=== PATIENT | female | born 1945 | race Caucasian/White ===

== ENCOUNTER → 2018-12-08 | Outpatient (CLI) | payer MEDICARE ==
[~2018-12-08] MED LIST: ASPI81EC PO; Aspirin EC81 MG PO; CALCIUM PYRUVATE PO; Calcitriol0.25 MCG PO; DIGO.25; FURO80; Feosol45 MG PO; LISI5 PO; Lisinopril2.5 MG PO; METO100ER PO; METO25ER PO; MOTOFEN 1-0.021 EACH PO; OMEP20ER; POTCHL10ER PO; PROCRIT 10000 UNIT; PROP50 PO; PROPYLTHIOURACIL; WARF3; Zofran4 MG PO; [UNRECOGNIZED DRUG - OTHER] PO
[2018-12-09 11:13] LABS: Adenovirus F 40/41 Not Detected (NOT DETECT); Astrovirus Not Detected (NOT DETECT); Campylobacter Sp Not Detected (NOT DETECT); Cryptosporidium Not Detected (NOT DETECT); Cyclospora Cayetanensis Not Detected (NOT DETECT); E. Coli O157 Not Detected (NOT DETECT); Entamoeba Histolytica Not Detected (NOT DETECT); Enteroaggregative E. coli-EAEC Not Detected (NOT DETECT); Enteropathogenic E. coli-EPEC Not Detected (NOT DETECT); Enterotoxigenic E. coli-ETEC Not Detected (NOT DETECT); Giardia Lamblia Not Detected (NOT DETECT); Norovirus GI/GII Not Detected (NOT DETECT); Plesiomonas Shigelloides Not Detected (NOT DETECT); Rotavirus A Not Detected (NOT DETECT); Salmonella Sp Not Detected (NOT DETECT); Sapovirus Not Detected (NOT DETECT); Shiga Toxin-prod E. coli-STEC Not Detected (NOT DETECT); Shigella/Enteroin E. coli-EIEC Not Detected (NOT DETECT); Vibrio Cholerae Not Detected (NOT DETECT); Vibrio Sp Not Detected (NOT DETECT); Yersinia Enterocolitica Not Detected (NOT DETECT)
== END | disposition home or self-care (01) ==
LOC: LAB 08:30 → LAB SHORT 08:30 → LAB FUT 12-03 11:25
PROVIDERS: Internal Medicine Gastroenterology
DX: R19.7 Diarrhea, unspecified (principal)
CPT/HCPCS: 87507

== ENCOUNTER 2019-02-26 11:46 | Day surgery (SDC) | payer MEDICARE ==
[~2019-02-26] VITALS: Ht 162.6 cm; Wt 48.3 kg
[2019-02-26] MEDS ORDERED: TIOT18 (12:30)
--- NOTE | 2019-02-26 12:35 | NUR ---
02/26/19 1235 Miesha Dumont 1 IV MISS IN RW BY YING VEIN BLEW 1 GOOD IV IN RAC BY YING PT TOW
--- NOTE | 2019-02-26 13:24 | NUR ---
02/26/19 1324 Bonnie Savage PT'S BP DOWN IN THE LOW 70'S TO LOW 80'S, AFTER UPPER ENDOSCOPY. MD JIEMY PULIDO, WAS ORDERED TO HOLD PROPOFOL INTO THE START OF THE COLONOSCOPY. PT CONT WITH HYPOTENSION, PT ALLOWED TO COMPLETELY WAKE UP AND WATCH THE COLONOSCOPY. PT DENIES PAIN OR DISCOMFORT, VERY INTERESTED IN WATCHING PROCEDURE.
== END 2019-02-26 14:05 | disposition home or self-care (01) ==
LOC: ORSCSDS 11:46
PROVIDERS: Internal Medicine Gastroenterology
PROC: 0DBL8ZX Excision of Transverse Colon, Via Natural or Artificial Opening Endoscopic, Diagnostic (ICD-10-PCS; principal; 2019-02-26 13:00)
PROC: 0DBE8ZX Excision of Large Intestine, Via Natural or Artificial Opening Endoscopic, Diagnostic (ICD-10-PCS; principal; 2019-02-26 13:00)
PROC: 0DB98ZX Excision of Duodenum, Via Natural or Artificial Opening Endoscopic, Diagnostic (ICD-10-PCS; principal; 2019-02-26 13:00)
DX: R11.0 Nausea (principal); R19.7 Diarrhea, unspecified; D12.3 Benign neoplasm of transverse colon; K63.89 Other specified diseases of intestine; D50.9 Iron deficiency anemia, unspecified; K57.30 Diverticulosis of large intestine without perforation or abscess without bleeding; K64.8 Other hemorrhoids; Z87.891 Personal history of nicotine dependence; I12.9 Hypertensive chronic kidney disease with stage 1 through stage 4 chronic kidney disease, or unspecified chronic kidney disease; N18.9 Chronic kidney disease, unspecified; J44.9 Chronic obstructive pulmonary disease, unspecified; E03.9 Hypothyroidism, unspecified; Z79.82 Long term (current) use of aspirin; Z79.899 Other long term (current) drug therapy
CPT/HCPCS: 88305; J2704; J7120

== ENCOUNTER → 2019-11-24 | Outpatient (CLI) | payer MEDICARE ==
[~2019-11-24] MED LIST changes: +TIOT18
[2019-11-24 18:37] LABS: Red Blood Cells, Urine TNTC /hpf (0-2); White Blood Cells, Urine TNTC /hpf (0-5)
[2019-11-24 18:38] LABS: Bacteria Many /hpf; Renal Epithelial Few /hpf (0-Rare); Squamous Epithelial Cells Few /hpf (Few); Transitional Epithelial Cells Few /hpf (0-Rare)
== END | disposition home or self-care (01) ==
LOC: LAB 15:39 → LAB SHORT 15:39
PROVIDERS: Internal Medicine Nephrology
DX: N39.0 Urinary tract infection, site not specified (principal)
CPT/HCPCS: 81015; 87077; 87086; 87186

== ENCOUNTER 2021-01-14 06:34 | Inpatient (IN) | payer MEDICARE, OTHER, SELFPAY ==
[~2021-01-14] VITALS: Ht 157.5 cm; Wt 46.7 kg
[~2021-01-14 06:34] MED LIST changes: -Aspirin EC81 MG PO; +CALCIUM PO; -CALCIUM PYRUVATE PO; -Calcitriol0.25 MCG PO; -Feosol45 MG PO; -Lisinopril2.5 MG PO; -METO25ER PO; -PROCRIT 10000 UNIT; -TIOT18; +[UNRECOGNIZED DRUG - CODE] SC
[2021-01-14 07:08] LABS: BASOPHILS ABSOLUTE AUTO 0.04 K/mm3 (0.00-0.23); BASOPHILS PERCENT AUTO 1 % (0-2); EOSINOPHILS ABSOLUTE AUTO 0.53 K/mm3 (0.00-0.68); EOSINOPHILS PERCENT AUTO 8 % (0-6); Hematocrit 40.6 % (33.0-51.0); IMMATURE GRAN ABSOLUTE AUTO 0.01 K/mm3 (0.00-0.10); IMMATURE GRAN PERCENT AUTO 0 % (0-1); LYMPHOCYTES ABSOLUTE AUTO 1.24 K/mm3 (0.84-5.20); LYMPHOCYTES PERCENT AUTO 19 % (21-46); MONOCYTES ABSOLUTE AUTO 0.44 K/mm3 (0.16-1.47); MONOCYTES PERCENT AUTO 7 % (4-13); Mean Corpuscular HGB 30.4 pg (26.0-34.0); Mean Corpuscular Volume 95 fL (80-100); Mean Platelet Volume 10.9 fL (9.1-12.4); NEUTROPHILS ABSOLUTE AUTO 4.24 K/mm3 (1.96-9.15); NEUTROPHILS PERCENT AUTO 65 % (41-73); Platelet Count 242 K/mm3 (150-400); RDW Coefficient Variation 14.3 % (11.7-14.2); RDW Standard Deviation 48.9 fL (35.1-46.3); Red Blood Cell Count 4.27 M/mm3 (3.80-5.20)
[2021-01-14 07:21] LABS: Albumin, Blood 3.8 g/dL (3.4-5.0); Bilirubin, Total 0.3 mg/dL (0.1-1.0); Bun/Creatinine Ratio 19.9 (12.0-20.0); Calcium, Blood 9.6 mg/dL (8.5-10.1); Creatinine, Blood 2.16 mg/dL (0.40-1.00); Globulin, Blood 3.8 g/dL (2.2-4.0); Potassium, Blood 4.5 mmol/L (3.5-5.5); Total Protein, Blood 7.6 g/dL (6.4-8.2)
[2021-01-14] MEDS ORDERED: CEPH500 PO (14:01)
--- NOTE | 2021-01-14 16:21 | NUR ---
Patient admitted by Dr Durham today. hypoxemic respiratory failure, kept because of blood pressure. If discharged over the weekend may require home oxygen. Patient has history of COPD. cp
--- NOTE | 2021-01-14 17:23 | NUR ---
SHIFT SUMMARY PATIENT ARRIVED TO THE FLOOR MID AFTERNOON. PATIENT ALERT, ORIENTED, AND COOPERATIVE WITH ADMISSION. PATIENT DENIES PAIN OR RESPIRATORY DISTRESS AFTER ARRIVAL TO THE FLOOR. PATIENT ON 2L O2 IN THE ROOM, NO HOME O2. PATIENT UP WITH ASSISTANCE WITH LINES AND IV POLE. PATIENT CURRENTLY RESTING IN BED.
[2021-01-14 21:38] LABS: International Normalized Ratio 0.96; Prothrombin Time Results 10.3 Sec (9.7-11.5)
--- NOTE | 2021-01-15 04:01 | NUR ---
SHIFT SUMMARY ADMITTED FOR ACUTE HYPOXEMIC RESPIRATORY FAILURE. FULL CODE. V/Q SCAN TO BE PERFORMED TODAY. FULL ANTICOAGULATION W/ HEPARIN DRIP IS INFUSING. D DIMER WAS 0.66. TWO IV'S FAILED FOR THIS PT THIS SHIFT. ONE IV REMAINS - INFUSING HEPARIN. CHARGE INFORMED, SHE MAY NEED A POWERGLIDE IV PLACED. SHE IS A&O X4. 1 ASSIST - BRP. TELEMETRY: NSR @ 67 BPM.
[2021-01-15 04:41] LABS: BASOPHILS ABSOLUTE AUTO 0.01 K/mm3 (0.00-0.23); BASOPHILS PERCENT AUTO 0 % (0-2); EOSINOPHILS ABSOLUTE AUTO 0.03 K/mm3 (0.00-0.68); EOSINOPHILS PERCENT AUTO 0 % (0-6); Hematocrit 33.2 % (33.0-51.0); Hemoglobin 10.4 g/dL (11.5-16.0); IMMATURE GRAN ABSOLUTE AUTO 0.03 K/mm3 (0.00-0.10); IMMATURE GRAN PERCENT AUTO 0 % (0-1); LYMPHOCYTES ABSOLUTE AUTO 0.94 K/mm3 (0.84-5.20); LYMPHOCYTES PERCENT AUTO 13 % (21-46); MONOCYTES ABSOLUTE AUTO 0.75 K/mm3 (0.16-1.47); MONOCYTES PERCENT AUTO 10 % (4-13); Mean Corpuscular HGB 29.9 pg (26.0-34.0); Mean Corpuscular HGB Conc 31.3 g/dL (31.5-36.5); Mean Corpuscular Volume 95 fL (80-100); Mean Platelet Volume 10.9 fL (9.1-12.4); NEUTROPHILS ABSOLUTE AUTO 5.58 K/mm3 (1.96-9.15); NEUTROPHILS PERCENT AUTO 76 % (41-73); Platelet Count 186 K/mm3 (150-400); RDW Coefficient Variation 14.2 % (11.7-14.2); RDW Standard Deviation 48.6 fL (35.1-46.3); Red Blood Cell Count 3.48 M/mm3 (3.80-5.20); White Blood Cell Count 7.34 K/mm3 (4.00-11.30)
[2021-01-15 05:03] LABS: Bun/Creatinine Ratio 23.9 (12.0-20.0); Calcium, Blood 8.5 mg/dL (8.5-10.1); Creatinine, Blood 1.97 mg/dL (0.40-1.00); Potassium, Blood 4.6 mmol/L (3.5-5.5)
[2021-01-15 16:43] LABS: Influenza A, PCR NEGATIVE (NEGATIVE); Influenza B, PCR NEGATIVE (NEGATIVE); Resp Syncytial Virus, PCR NEGATIVE (NEGATIVE); SARS-Cov-2 (COVID-19) PCR, MMC NEGATIVE (NEGATIVE)
--- NOTE | 2021-01-15 18:12 | NUR ---
SHIFT SUMMARY PT IS A&O, PLEASANT AND CO-OP. AWAKE AT START OF SHIFT. UP TO EOB FOR ALL MEALS. PT ON HEPARIN DRIP AT START OF SHIFT FOR ELEVATED D-DIMER. CRITICAL LABS CALLED X2. PHARMACY NOTIFIED AND ADJUSTED HEPARIN. VQ SCAN DONE AND DR POPE IN TO DISCUSS RESULTS. HEPARIN DRIP D/C'D. AND NEW ORDERS PLACED. PT WAS GOING TO GO HOME, BUT DEVELPED WHEEZING AND NPC. SOLUMEDROL STARTED FOR TODAY. POSSIBLE D/C TOMORROW. PT HAD BEEN 1P SBA TO BTHRM WITH LINES AND TUBING. TELE MX D/C'D AND IVF'S D/C'D. PT ALSO 98%ON 1L NC. PT NOW ON RA AND ABLE TO AMBULATE TO BTHRM ON HER OWN. PT NORMALLY ON RA AT BASELINE FOR HOME. PT DENIES FURTHER NEEDS. NO C/O. CALL LT IN REACH. ABLE TO MAKE NEEDS KNOWN.
--- NOTE | 2021-01-16 05:42 | NUR ---
SHIFT SUMMARY A/O, ABLE TO MAKE NEEDS KNOWN. COOPERATIVE WITH CARE. CALLS AND ANSWERS QUESTIONS APPROPRIATELY. NO C/O PAIN/DISCOMFORT. BP NOTED TO BE HYPOTENSIVE AT BEGINNING OF SHIFT; GIVEN 500ML BOLUS PER ON-CALL PROVIDER. MINIMAL RESULT. RE-CHECKED FOR AM VS MUCH IMPROVED. HOWEVER, DESATURATION NOTED AND PLACED BACK ON 2L VIA NC. NO OTHER ACUTE CHANGES NOTED OVERNIGHT. APPEARED TO REST WELL OVERNIGHT. 1P ASSIST TO BATHROOM. BED REMAINS IN LOWEST POSITION. CALL LIGHT AND BELONGINGS WITHIN REACH. REPORT TO ONCOMING RN.
--- NOTE | 2021-01-16 18:13 | NUR ---
SHIFT SUMMARY PT AWAKE, SITTING UP TO EOB, THIS AM. LUNGS T/O, SEEMED TO BE IMPROVED TODAY. HOWEVER, PT REPORTED TO DR POPE THAT SHE DIDN'T FEEL ALL THAT WELL. NO C/O OF SOB. PT PLACED ON 1L NC DURING THE NIGHT, AFTER GETTING UP TO BTHRM AND BACK; BIOX DOWN TO 88%. DR POPE IN TO SEE PT LATER IN AM, PLACING NEW ORDERS. PT TO STAY ONE MORE DAY. PO AND IV ABX ADDED PER CHART REVIEW. PT SEEMS TO BE DOING BETTER THIS AFTERNOON. PLEASANT AND CO-OP. EYES DROPS ORDERED PER HOME MEDICATIONS. PT UP TO EOB FOR MEALS. SBA TO INDEPENDENT TO BTHRM. CALL LT IN REACH.
--- NOTE | 2021-01-16 19:10 | NUR ---
ASSUMED CARE RECEIVED REPORT FROM VIANCA NOBLE. PT RESTING IN BED COMFORTABLY, IN NO ACUTE DISTRESS. NO ACUTE NEEDS ASSESSED AT THIS TIME. CALL LIGHT, POSSESSIONS IN REACH, BED IN LOW POSITION. CONTINUE TO MONITOR.
[2021-01-17 04:38] LABS: BASOPHILS ABSOLUTE AUTO 0.01 K/mm3 (0.00-0.23); BASOPHILS PERCENT AUTO 0 % (0-2); EOSINOPHILS PERCENT AUTO 0 % (0-6); Hematocrit 36.7 % (33.0-51.0); Hemoglobin 11.8 g/dL (11.5-16.0); IMMATURE GRAN ABSOLUTE AUTO 0.12 K/mm3 (0.00-0.10); IMMATURE GRAN PERCENT AUTO 1 % (0-1); LYMPHOCYTES PERCENT AUTO 6 % (21-46); MONOCYTES ABSOLUTE AUTO 0.38 K/mm3 (0.16-1.47); MONOCYTES PERCENT AUTO 3 % (4-13); Mean Corpuscular HGB 30.4 pg (26.0-34.0); Mean Corpuscular HGB Conc 32.2 g/dL (31.5-36.5); Mean Corpuscular Volume 95 fL (80-100); Mean Platelet Volume 10.9 fL (9.1-12.4); NEUTROPHILS PERCENT AUTO 90 % (41-73); Platelet Count 202 K/mm3 (150-400); RDW Coefficient Variation 14.1 % (11.7-14.2); RDW Standard Deviation 48.4 fL (35.1-46.3); Red Blood Cell Count 3.88 M/mm3 (3.80-5.20); White Blood Cell Count 12.21 K/mm3 (4.00-11.30)
[2021-01-17 05:01] LABS: Albumin, Blood 3.2 g/dL (3.4-5.0); Bilirubin, Total 0.1 mg/dL (0.1-1.0); Bun/Creatinine Ratio 29.4 (12.0-20.0); Calcium, Blood 8.9 mg/dL (8.5-10.1); Creatinine, Blood 1.77 mg/dL (0.40-1.00); Globulin, Blood 3.3 g/dL (2.2-4.0); Potassium, Blood 4.8 mmol/L (3.5-5.5); Total Protein, Blood 6.5 g/dL (6.4-8.2)
--- NOTE | 2021-01-17 05:25 | NUR ---
HUMIDIFIER ATTENDANT SUMMARY PT ASLEEP, IN NO ACUTE DISTRESS. SLEPT ON AND OFF T/O NIGHT. VS REVIEWED,WNL. O2 SATS STABLE ON RA. PT DENIES SOB. NO C/O GI UPSET AT THIS TIME. DENIES NEEDS. CALL LIGHT, POSSESSIONS IN REACH, BED IN LOW POSITION. CONTINUE TO MONITOR, REPORT OFF TO DAY RN.
--- NOTE | 2021-01-17 18:07 | NUR ---
SHIFT SUMMARY PT AOX4; CALLS APPROPRIATELY. PT DENIES CP OR PAIN. PT HAD A SHOWER TODAY; AND PT IS ON 1L OF O2; SATS ABOVE 90%. DYSPNEA ON EXERTION DUE TO COPD. PT DTR RECEIVED AN UPDATE FROM THIS NURSE TODAY. PT BED IS IN THE LOWEST POSITION AND CALL LIGHT WITHIN REACH
--- NOTE | 2021-01-17 19:02 | NUR ---
ADMIT: 01/14/21 DISCHARGE: DX: ARF CC: cpeabody ALIS CALL: RESIDENCE: home alone CAREGIVER: DX: copd, ckd 4, htn, see list DME: nebulizer CCM: no record HOME HEALTH: no record SUMMARY: Admit 01/14/[address] Durham 01/17/[address] Bhagat, no eta for discharge at this time. Patient will need home 02 evaluation for discharge home. I will meet with Aleisha on Sunday to start discharge planning. cp ASSESSMENT/RECOMMENDATIONS: 1. Acute hypoxemic respiratory failure, I suspect this primarily represents an exacerbation of chronic obstructive pulmonary disease symptoms
--- NOTE | 2021-01-17 22:32 | NUR ---
ASSUMPTION OF CARE. AOX3, INDEPENDENT IN THE ROOM. LUNGS TIGHT, DIMINISHED, BRONCHIAL RHONCI, COUGH PRODUCTIVE, THICK SPUTUM. CURRENTLY ON RA, DOES USE 1 LITER OFF AND ON, ENCOURAGED DEEP BREATHING. HR SINUS. NO PAIN. NO NEEDS NOTED. MEDICATION ADMINISTERED, REFUSED HEPARIN. CURRENTLY LAYING DOWN FOR BED. CALL LIGHT IS IN REACH.
--- NOTE | 2021-01-18 05:14 | NUR ---
SHIFT SUMMARY: AOX3, PLEASANT AND COOPERATIVE. LUNGS TIGHT, DYSPENIC WITH EXERTION. SATS LOW 90'S ON RA, OCCATIONALLY USES 1 LITER FOR RELEIF. COUGH OCCATIONAL PRODUCTIVE. INDEPENDENT IN THE ROOM. VS WNL, AFEBRILE. DOES NOT LIKE STERIODS THEY MAKE HER STAY AWAKE AND SHAKY. HOPES TO GO HOME SOON. NO OTHER ACUTE CHANGES TO NOTE THIS SHIFT. CALL LIGHT IS IN REACH.
[2021-01-18 05:19] LABS: BASOPHILS ABSOLUTE AUTO 0.01 K/mm3 (0.00-0.23); BASOPHILS PERCENT AUTO 0 % (0-2); EOSINOPHILS PERCENT AUTO 0 % (0-6); Hematocrit 40.5 % (33.0-51.0); Hemoglobin 12.7 g/dL (11.5-16.0); IMMATURE GRAN ABSOLUTE AUTO 0.15 K/mm3 (0.00-0.10); IMMATURE GRAN PERCENT AUTO 1 % (0-1); LYMPHOCYTES ABSOLUTE AUTO 0.56 K/mm3 (0.84-5.20); LYMPHOCYTES PERCENT AUTO 5 % (21-46); MONOCYTES ABSOLUTE AUTO 0.26 K/mm3 (0.16-1.47); MONOCYTES PERCENT AUTO 2 % (4-13); Mean Corpuscular HGB 29.9 pg (26.0-34.0); Mean Corpuscular HGB Conc 31.4 g/dL (31.5-36.5); Mean Corpuscular Volume 95 fL (80-100); Mean Platelet Volume 10.9 fL (9.1-12.4); NEUTROPHILS ABSOLUTE AUTO 10.38 K/mm3 (1.96-9.15); NEUTROPHILS PERCENT AUTO 91 % (41-73); Platelet Count 226 K/mm3 (150-400); RDW Coefficient Variation 14.1 % (11.7-14.2); RDW Standard Deviation 48.9 fL (35.1-46.3); Red Blood Cell Count 4.25 M/mm3 (3.80-5.20); White Blood Cell Count 11.36 K/mm3 (4.00-11.30)
[2021-01-18 05:34] LABS: Calcium, Blood 9.1 mg/dL (8.5-10.1); Creatinine, Blood 1.86 mg/dL (0.40-1.00); Potassium, Blood 4.7 mmol/L (3.5-5.5)
[2021-01-18] MEDS ORDERED: AZIT250 PO (16:12)
[2021-01-18] MEDS ORDERED: PRED20 PO (16:15)
--- NOTE | 2021-01-18 16:58 | NUR ---
ADMIT: 01/14/21 DISCHARGE: 01/18/21 DX: ARF CC: cpeabody ALIS CALL: Call Aleisha at home for alis, 1 week follow up alis in [place]. Prefers Dr Durham or Olayinka. RESIDENCE: home alone CAREGIVER: friends can help out if needed. DX: copd, ckd 4, htn, see list DME: nebulizer, Oxygen 2 l/m 24 hours from [facility] 01/18/21 CCM: no record HOME HEALTH: not homebound SUMMARY: Admit 01/14/[address] Durham 01/18/21 Discharge home, friend to pick her up, can take her to pharmacy and grocery store. Reviewed discharge checklist. Did not identify any additional care needs. Would like to see Dr Durham or Olayinka for alis follow up if possbile. 1 week. Reviewed alis letter, left her a copy. [facility] to deliver oxygen portable for discharge. cp 01/17/[address] Bhagat, no eta for discharge at this time. Patient will need home 02 evaluation for discharge home. I will meet with Aleisha on Sunday to start discharge planning. cp ASSESSMENT/RECOMMENDATIONS: 1. Acute hypoxemic respiratory failure, I suspect this primarily represents an exacerbation of chronic obstructive pulmonary disease symptoms.
--- NOTE | 2021-01-18 17:17 | NUR ---
DISCHARGED TO HOME WITH HER FRIEND AT 1639. SHE HAD HER BELONGINGS, HER NEW PORTABLE O2 TANK AND HER INSTRUCTIONS. SHE IS NOT HAPPY ABOUT NEEDING O2 AT HOME. SHE IS ALSO AFRAID SHE CAN'T AFORD IT. SHE ALWAYS LOOK SOB, MORESO WITH ACTIVITY IN THE ROOM. SHE WAS VERY HAPPY TO GO HOME.
== END 2021-01-18 16:39 | disposition home or self-care (01) | DRG 189 ==
LOC: ER 06:34 → MEDS 12:10
PROVIDERS: Emergency Medicine; Family Medicine; Pharmacist; ADMIT Internal Medicine
DX: J96.01 Acute respiratory failure with hypoxia (principal); I13.0 Hypertensive heart and chronic kidney disease with heart failure and stage 1 through stage 4 chronic kidney disease, or unspecified chronic kidney disease; N18.4 Chronic kidney disease, stage 4 (severe); J43.9 Emphysema, unspecified; Z20.822 Contact with and (suspected) exposure to COVID-19; I50.9 Heart failure, unspecified; I95.9 Hypotension, unspecified; K21.9 Gastro-esophageal reflux disease without esophagitis; K22.4 Dyskinesia of esophagus; M81.0 Age-related osteoporosis without current pathological fracture; Z99.81 Dependence on supplemental oxygen; I48.91 Unspecified atrial fibrillation; E05.00 Thyrotoxicosis with diffuse goiter without thyrotoxic crisis or storm; Z87.891 Personal history of nicotine dependence; D64.9 Anemia, unspecified; E05.80 Other thyrotoxicosis without thyrotoxic crisis or storm
CPT/HCPCS: 0241U; 36415; 71045; 71046; 78580; 80048; 80053; 83880; 84145; 85025; 85379; 85610; 85730; 93005; 93010; 94640; 94644; 94760; 94761; 96374; 99285-25; A9270; A9540; J0696; J1644; J2930; J7040; J7042; J7050

== ENCOUNTER → 2021-01-27 | Outpatient (CLI) | payer MEDICARE, OTHER ==
[~2021-01-27] MED LIST changes: +ALBU90OI INH; +AZIT250 PO; +Aspirin EC81 MG PO; +BUDESONIDE-FO10.2 G2 INH; +CEPH500 PO; +Calcitriol0.25 MCG PO; +FUROSEMIDE40 MG PO; +Feosol45 MG PO; +IPRAT-ALBUT 0.5-3 ML NEB; +LATA.005SO BOTHEYES; +METO25 PO; +Methimazole5 MG PO; +POTA8 PO; +PRED20 PO; +TIOT18 INH; +VITAMIN D325 MC3 PO
[2021-01-28 09:57] LABS: C DIFFICILE DNA POSITIVE (Negative)
== END | disposition home or self-care (01) ==
LOC: LAB SHORT 14:59 → LAB 14:59
PROVIDERS: Internal Medicine
DX: R19.7 Diarrhea, unspecified (principal)
CPT/HCPCS: 87324; 87493

== ENCOUNTER 2021-03-15 17:01 | Emergency (ER) | payer MEDICARE, OTHER ==
[~2021-03-15] VITALS: Ht 157.5 cm; Wt 47.6 kg
[~2021-03-15 17:01] MED LIST changes: -ALBU90OI INH; -Aspirin EC81 MG PO; -BUDESONIDE-FO10.2 G2 INH; -Calcitriol0.25 MCG PO; -FUROSEMIDE40 MG PO; -Feosol45 MG PO; -IPRAT-ALBUT 0.5-3 ML NEB; -LATA.005SO BOTHEYES; -METO25 PO; -Methimazole5 MG PO; -POTA8 PO; -TIOT18 INH; -VITAMIN D325 MC3 PO
[2021-03-15 18:08] LABS: BASOPHILS ABSOLUTE AUTO 0.06 K/mm3 (0.00-0.23); BASOPHILS PERCENT AUTO 1 % (0-2); EOSINOPHILS ABSOLUTE AUTO 0.24 K/mm3 (0.00-0.68); EOSINOPHILS PERCENT AUTO 3 % (0-6); Hematocrit 34.7 % (33.0-51.0); Hemoglobin 11.2 g/dL (11.5-16.0); IMMATURE GRAN ABSOLUTE AUTO 0.44 K/mm3 (0.00-0.10); IMMATURE GRAN PERCENT AUTO 6 % (0-1); LYMPHOCYTES ABSOLUTE AUTO 1.27 K/mm3 (0.84-5.20); LYMPHOCYTES PERCENT AUTO 17 % (21-46); MONOCYTES ABSOLUTE AUTO 0.66 K/mm3 (0.16-1.47); MONOCYTES PERCENT AUTO 9 % (4-13); Mean Corpuscular HGB 30.8 pg (26.0-34.0); Mean Corpuscular HGB Conc 32.3 g/dL (31.5-36.5); Mean Corpuscular Volume 95 fL (80-100); Mean Platelet Volume 10.3 fL (9.1-12.4); NEUTROPHILS ABSOLUTE AUTO 4.78 K/mm3 (1.96-9.15); NEUTROPHILS PERCENT AUTO 64 % (41-73); NRBC ABSOLUTE 0.11 K/mm3 (0.00-0.02); NRBC Auto 1.5 /100 WBC (0.0-0.2); Platelet Count 330 K/mm3 (150-400); RDW Coefficient Variation 16.7 % (11.7-14.2); RDW Standard Deviation 56.2 fL (35.1-46.3); Red Blood Cell Count 3.64 M/mm3 (3.80-5.20); White Blood Cell Count 7.45 K/mm3 (4.00-11.30)
[2021-03-15 18:25] LABS: Albumin, Blood 3.8 g/dL (3.4-5.0); Bilirubin, Total 0.4 mg/dL (0.1-1.0); Bun/Creatinine Ratio 24.1 (12.0-20.0); Calcium, Blood 9.2 mg/dL (8.5-10.1); Creatinine, Blood 2.74 mg/dL (0.40-1.00); Potassium, Blood 5.3 mmol/L (3.5-5.5); Total Protein, Blood 7.8 g/dL (6.4-8.2)
[2021-03-15 18:35] LABS: BAND PERCENT MAN 5 % (0-8); BASOPHILS PERCENT MAN 0 % (0-2); EOSINOPHILS ABSOLUTE MAN 0.29 K/mm3 (0.00-0.68); EOSINOPHILS PERCENT MAN 4 % (0-6); LYMPHOCYTES % ATYPICAL MANUAL 1 % (0-0); LYMPHOCYTES ABSOLUTE MAN 1.49 K/mm3 (0.84-5.20); LYMPHOCYTES PERCENT MAN 19 % (21-46); METAMYELOCYTE ABSOLUTE MAN 0.37 K/mm3 (0.00-0.00); METAMYELOCYTE PERCENT MAN 5 % (0-0); MONOCYTES ABSOLUTE MAN 0.14 K/mm3 (0.16-1.47); MONOCYTES PERCENT MAN 2 % (4-13); NEUTROPHILS ABSOLUTE MAN 5.14 K/mm3 (1.96-9.15); SEG NEUTROPHILS PERCENT MAN 64 % (41-73); TOTAL CELLS COUNTED 100
[2021-03-15] MEDS ORDERED: BUDESONIDE-FO10.2 G2 INH (19:43)
[2021-03-15] MEDS ORDERED: FUROSEMIDE40 MG PO (19:44)
[2021-03-15] MEDS ORDERED: POTA8 PO (19:45)
[2021-03-15] MEDS ORDERED: Calcitriol0.25 MCG PO (19:45)
[2021-03-15] MEDS ORDERED: ALBU90OI INH (19:46)
[2021-03-15] MEDS ORDERED: Methimazole5 MG PO (20:18)
[2021-03-15] MEDS ORDERED: LATA.005SO BOTHEYES (20:18)
[2021-03-15] MEDS ORDERED: Feosol45 MG PO (20:18)
[2021-03-15] MEDS ORDERED: Aspirin EC81 MG PO (20:18)
[2021-03-15] MEDS ORDERED: LISI5 PO (20:18)
[2021-03-15] MEDS ORDERED: TIOT18 INH (20:18)
[2021-03-15] MEDS ORDERED: METO25 PO (20:18)
[2021-03-15] MEDS ORDERED: IPRAT-ALBUT 0.5-3 ML NEB (20:19)
[2021-03-15] MEDS ORDERED: VITAMIN D325 MC3 PO (20:19)
== END 2021-03-16 01:21 | disposition home or self-care (01) ==
LOC: ER 17:01
PROVIDERS: Physician Assistant
DX: R19.7 Diarrhea, unspecified (principal); I48.91 Unspecified atrial fibrillation; I13.0 Hypertensive heart and chronic kidney disease with heart failure and stage 1 through stage 4 chronic kidney disease, or unspecified chronic kidney disease; I50.9 Heart failure, unspecified; N18.9 Chronic kidney disease, unspecified; E03.9 Hypothyroidism, unspecified; Z79.899 Other long term (current) drug therapy; Z88.1 Allergy status to other antibiotic agents; Z88.5 Allergy status to narcotic agent
CPT/HCPCS: 36415; 80053; 84439; 84443; 85025; 99284; J7030

== ENCOUNTER → 2021-03-17 | Outpatient (CLI) | payer MEDICARE, OTHER ==
[~2021-03-17] MED LIST changes: +ALBU90OI INH; +Aspirin EC81 MG PO; +BUDESONIDE-FO10.2 G2 INH; +Calcitriol0.25 MCG PO; +FUROSEMIDE40 MG PO; +Feosol45 MG PO; +IPRAT-ALBUT 0.5-3 ML NEB; +LATA.005SO BOTHEYES; +METO25 PO; +Methimazole5 MG PO; +POTA8 PO; +TIOT18 INH; +VITAMIN D325 MC3 PO
[2021-03-18 10:14] LABS: C DIFFICILE DNA POSITIVE (Negative)
== END ==
LOC: LAB SHORT 10:00 → LAB 10:00
PROVIDERS: Internal Medicine
DX: A04.72 Enterocolitis due to Clostridium difficile, not specified as recurrent (principal)
CPT/HCPCS: 87324; 87493

== ENCOUNTER → 2021-05-25 | Outpatient (CLI) | payer MEDICARE, OTHER ==
[2021-05-25 17:18] LABS: Campylobacter Sp Not Detected (NOT DETECT); Plesiomonas Shigelloides Not Detected (NOT DETECT); Salmonella Sp Not Detected (NOT DETECT)
[2021-05-25 17:19] LABS: Adenovirus F 40/41 Not Detected (NOT DETECT); Astrovirus Not Detected (NOT DETECT); Cryptosporidium Not Detected (NOT DETECT); Cyclospora Cayetanensis Not Detected (NOT DETECT); E. Coli O157 Not Detected (NOT DETECT); Entamoeba Histolytica Not Detected (NOT DETECT); Enteroaggregative E. coli-EAEC Not Detected (NOT DETECT); Enteropathogenic E. coli-EPEC Not Detected (NOT DETECT); Enterotoxigenic E. coli-ETEC Not Detected (NOT DETECT); Giardia Lamblia Not Detected (NOT DETECT); Norovirus GI/GII Not Detected (NOT DETECT); Rotavirus A Not Detected (NOT DETECT); Sapovirus Not Detected (NOT DETECT); Shiga Toxin-prod E. coli-STEC Not Detected (NOT DETECT); Shigella/Enteroin E. coli-EIEC Not Detected (NOT DETECT); Vibrio Cholerae Not Detected (NOT DETECT); Vibrio Sp Not Detected (NOT DETECT); Yersinia Enterocolitica Not Detected (NOT DETECT)
== END | disposition home or self-care (01) ==
LOC: LAB 07:22 → LAB SHORT 07:22
PROVIDERS: Internal Medicine Gastroenterology
DX: R19.7 Diarrhea, unspecified (principal)
CPT/HCPCS: 0097U; 87324

== ENCOUNTER → 2022-06-19 | Outpatient (CLI) | payer MEDICARE, OTHER ==
[~2022-06-19] MED LIST changes: +SULTRIDS PO
[2022-06-20 10:59] LABS: Stool Occult Bld Immuno 1 Negative (NEGATIVE)
== END | disposition home or self-care (01) ==
LOC: LAB 08:45 → LAB SHORT 08:45
PROVIDERS: Internal Medicine Nephrology
DX: B82.9 Intestinal parasitism, unspecified (principal)
CPT/HCPCS: 82274

== ENCOUNTER → 2022-06-22 | Outpatient (CLI) | payer MEDICARE, OTHER ==
[~2022-06-22] MED LIST changes: +ACET500 PO; +BRIMONIDINE TART5 ML BOTHEYES; +CLOT10 MT; +COLCRYS0.6 M1 PO; +ENOX30I SC; +FURO80 PO; +GABA100 PO; +LIDO5TO TOP; +LOPE2C PO; +METHI10 PO; +MIDO5 PO; +ONDA4 PO; +ONDA4ODT MM; +POTA10T PO; +SODBIC650 PO
[2022-06-23 07:51] LABS: C DIFFICILE DNA POSITIVE (Negative)
== END | disposition home or self-care (01) ==
LOC: LAB 14:00 → LAB SHORT 14:00 → LAB FUT 06-22 11:40
PROVIDERS: Internal Medicine Nephrology
DX: A04.71 Enterocolitis due to Clostridium difficile, recurrent (principal)
CPT/HCPCS: 87324; 87493

== ENCOUNTER 2022-07-01 10:26 | Emergency (ER) | payer MEDICARE, OTHER ==
[~2022-07-01] VITALS: Ht 157.5 cm; Wt 45.4 kg
[~2022-07-01 10:26] MED LIST changes: -ACET500 PO; -BRIMONIDINE TART5 ML BOTHEYES; -CLOT10 MT; -COLCRYS0.6 M1 PO; -ENOX30I SC; -FURO80 PO; -GABA100 PO; -LIDO5TO TOP; -LOPE2C PO; -METHI10 PO; -MIDO5 PO; -ONDA4 PO; -ONDA4ODT MM; -POTA10T PO; -SODBIC650 PO; -SULTRIDS PO
[2022-07-01 11:41] LABS: BASOPHILS ABSOLUTE AUTO 0.03 K/mm3 (0.00-0.23); BASOPHILS PERCENT AUTO 0 % (0-2); EOSINOPHILS ABSOLUTE AUTO 0.13 K/mm3 (0.00-0.68); EOSINOPHILS PERCENT AUTO 2 % (0-6); Hematocrit 35.1 % (33.0-51.0); IMMATURE GRAN ABSOLUTE AUTO 0.03 K/mm3 (0.00-0.10); IMMATURE GRAN PERCENT AUTO 0 % (0-1); LYMPHOCYTES ABSOLUTE AUTO 1.13 K/mm3 (0.84-5.20); LYMPHOCYTES PERCENT AUTO 16 % (21-46); MONOCYTES ABSOLUTE AUTO 0.56 K/mm3 (0.16-1.47); MONOCYTES PERCENT AUTO 8 % (4-13); Mean Corpuscular HGB 30.1 pg (26.0-34.0); Mean Corpuscular HGB Conc 31.3 g/dL (31.5-36.5); Mean Corpuscular Volume 96 fL (80-100); Mean Platelet Volume 9.6 fL (9.1-12.4); NEUTROPHILS ABSOLUTE AUTO 5.19 K/mm3 (1.96-9.15); NEUTROPHILS PERCENT AUTO 74 % (41-73); Platelet Count 210 K/mm3 (150-400); RDW Coefficient Variation 17.2 % (11.7-14.2); RDW Standard Deviation 56.7 fL (35.1-46.3); Red Blood Cell Count 3.66 M/mm3 (3.80-5.20); White Blood Cell Count 7.07 K/mm3 (4.00-11.30)
[2022-07-01 11:54] LABS: Bun/Creatinine Ratio 25.9 (12.0-20.0); Calcium, Blood 9.5 mg/dL (8.5-10.1); Creatinine, Blood 1.85 mg/dL (0.40-1.00); Potassium, Blood 5.4 mmol/L (3.5-5.5)
[2022-07-01 12:50] LABS: Source, Urine Clean Catch
[2022-07-01 12:55] LABS: Appearance, Urine Hazy (Clear); Bilirubin, Urine Neg (Neg); Blood, Urine 5+ (Neg); Glucose Qualitative, Urine Neg (Neg); Ketones, Urine Neg (Neg); Leukocyte Esterase, Urine 2+ (Neg); Nitrite, Urine Pos (Neg); Protein, Urine 2+ (Neg); Urobilinogen, Urine NORM (Normal)
[2022-07-01 13:00] LABS: Color, Urine Pale Yellow (P-Yellow)
[2022-07-01 13:01] LABS: Bacteria Many /hpf; Hyaline Casts 0-2 /lpf (0-2); Red Blood Cells, Urine 50-100 /hpf (0-2); Squamous Epithelial Cells Rare /hpf (Few); White Blood Cells, Urine 25-50 /hpf (0-5)
[2022-07-01] MEDS ORDERED: SULTRIDS PO (13:32)
== END 2022-07-01 13:58 | disposition home or self-care (01) ==
LOC: ER 10:26
PROVIDERS: Emergency Medicine
DX: N39.0 Urinary tract infection, site not specified (principal); I48.91 Unspecified atrial fibrillation; I13.0 Hypertensive heart and chronic kidney disease with heart failure and stage 1 through stage 4 chronic kidney disease, or unspecified chronic kidney disease; N18.9 Chronic kidney disease, unspecified; I50.9 Heart failure, unspecified; E03.9 Hypothyroidism, unspecified; Z79.899 Other long term (current) drug therapy; Z79.82 Long term (current) use of aspirin
CPT/HCPCS: 36415; 80048; 81001; 85025; A9270; J7030

== ENCOUNTER 2022-07-02 10:21 | Emergency (ER) | payer MEDICARE, OTHER ==
[~2022-07-02] VITALS: Ht 157.5 cm; Wt 47.6 kg
[~2022-07-02 10:21] MED LIST changes: +SULTRIDS PO
[2022-07-02 11:04] LABS: BASOPHILS ABSOLUTE AUTO 0.05 K/mm3 (0.00-0.23); BASOPHILS PERCENT AUTO 1 % (0-2); EOSINOPHILS ABSOLUTE AUTO 0.14 K/mm3 (0.00-0.68); EOSINOPHILS PERCENT AUTO 2 % (0-6); Hematocrit 33.5 % (33.0-51.0); Hemoglobin 10.6 g/dL (11.5-16.0); IMMATURE GRAN ABSOLUTE AUTO 0.06 K/mm3 (0.00-0.10); IMMATURE GRAN PERCENT AUTO 1 % (0-1); LYMPHOCYTES ABSOLUTE AUTO 1.25 K/mm3 (0.84-5.20); LYMPHOCYTES PERCENT AUTO 17 % (21-46); MONOCYTES PERCENT AUTO 7 % (4-13); Mean Corpuscular HGB 30.4 pg (26.0-34.0); Mean Corpuscular HGB Conc 31.6 g/dL (31.5-36.5); Mean Corpuscular Volume 96 fL (80-100); NEUTROPHILS ABSOLUTE AUTO 5.45 K/mm3 (1.96-9.15); NEUTROPHILS PERCENT AUTO 73 % (41-73); Platelet Count 209 K/mm3 (150-400); RDW Standard Deviation 57.8 fL (35.1-46.3); Red Blood Cell Count 3.49 M/mm3 (3.80-5.20); White Blood Cell Count 7.45 K/mm3 (4.00-11.30)
[2022-07-02 11:15] LABS: Albumin, Blood 3.5 g/dL (3.4-5.0); Bilirubin, Total 0.3 mg/dL (0.1-1.0); Bun/Creatinine Ratio 18.5 (12.0-20.0); Calcium, Blood 9.1 mg/dL (8.5-10.1); Creatinine, Blood 1.89 mg/dL (0.40-1.00); Globulin, Blood 3.5 g/dL (2.2-4.0); Potassium, Blood 4.8 mmol/L (3.5-5.5)
[2022-07-02 12:57] LABS: Influenza A, PCR NEGATIVE (NEGATIVE); Influenza B, PCR NEGATIVE (NEGATIVE); Resp Syncytial Virus, PCR NEGATIVE (NEGATIVE); SARS-Cov-2 (COVID-19) PCR, MMC NEGATIVE (NEGATIVE)
== END 2022-07-02 16:00 | disposition home or self-care (01) ==
LOC: ER 10:21
PROVIDERS: Emergency Medicine; Family Medicine
DX: E86.0 Dehydration (principal); I10 Essential (primary) hypertension; J44.9 Chronic obstructive pulmonary disease, unspecified; Z87.891 Personal history of nicotine dependence; Z20.822 Contact with and (suspected) exposure to COVID-19; Z79.82 Long term (current) use of aspirin; Z79.899 Other long term (current) drug therapy
CPT/HCPCS: 0241U; 71046; 80053; 83605; 85025; 93005; 93010; 99284-25

== ENCOUNTER 2022-07-20 17:43 | Observation (INO) | payer MEDICARE, OTHER ==
[~2022-07-20] VITALS: Ht 157.5 cm; Wt 44.2 kg
[2022-07-20 18:36] LABS: BASOPHILS ABSOLUTE AUTO 0.05 K/mm3 (0.00-0.23); BASOPHILS PERCENT AUTO 1 % (0-2); EOSINOPHILS PERCENT AUTO 1 % (0-6); Hematocrit 33.8 % (33.0-51.0); Hemoglobin 10.4 g/dL (11.5-16.0); IMMATURE GRAN ABSOLUTE AUTO 0.03 K/mm3 (0.00-0.10); IMMATURE GRAN PERCENT AUTO 0 % (0-1); LYMPHOCYTES ABSOLUTE AUTO 0.91 K/mm3 (0.84-5.20); LYMPHOCYTES PERCENT AUTO 12 % (21-46); MONOCYTES ABSOLUTE AUTO 0.52 K/mm3 (0.16-1.47); MONOCYTES PERCENT AUTO 7 % (4-13); Mean Corpuscular HGB Conc 30.8 g/dL (31.5-36.5); Mean Corpuscular Volume 101 fL (80-100); Mean Platelet Volume 10.2 fL (9.1-12.4); NEUTROPHILS ABSOLUTE AUTO 5.81 K/mm3 (1.96-9.15); NEUTROPHILS PERCENT AUTO 78 % (41-73); Platelet Count 223 K/mm3 (150-400); RDW Standard Deviation 60.1 fL (35.1-46.3); Red Blood Cell Count 3.36 M/mm3 (3.80-5.20); White Blood Cell Count 7.42 K/mm3 (4.00-11.30)
[2022-07-20 18:56] LABS: Albumin, Blood 3.6 g/dL (3.4-5.0); Albumin/Globulin Ratio 1.1 (0.8-1.8); Bilirubin, Total 0.4 mg/dL (0.1-1.0); Bun/Creatinine Ratio 26.2 (12.0-20.0); Calcium, Blood 9.1 mg/dL (8.5-10.1); Creatinine, Blood 1.87 mg/dL (0.40-1.00); Globulin, Blood 3.3 g/dL (2.2-4.0); Magnesium, Blood 2.1 mg/dL (1.6-2.4); Potassium, Blood 5.2 mmol/L (3.5-5.5); Total Protein, Blood 6.9 g/dL (6.4-8.2)
[2022-07-20] MEDS ORDERED: ACET500 PO (19:53)
[2022-07-20] MEDS ORDERED: COLCRYS0.6 M1 PO (19:53)
--- NOTE | 2022-07-20 22:04 | NUR ---
ADMISSION PT ARRIVED TO THE UNIT AT 2140 FOR L HIP INJURY. PT FELL OVER HER NC CORD AT HOME AND INJURED HER HIP AND SUSTAINED ABRAIONS TO HER L KNEE AND FOREARM. PT HAS A HX OF CDIFF FROM 06/04, SHE RECIEVED A 10 DAY TREATMENT BUT STILL REPORTS LOOSE STOOLS. PT PLACED ON CONTACT PRECAUTIONS FOR CDIFF. PT AOX4, PLEASANT AND COOPERATIVE. SHE IS ON 2L O2 NC AT BASELINE. SHE DOES NOT HAVE PAIN UNLESS SHE IS TRYING TO AMBULATE OR REPOSITION. PT LIVES ALONE, MAY NEED REHAB OR HOME HEALTH.
[2022-07-20] MEDS ORDERED: BRIMONIDINE TART5 ML BOTHEYES (22:06)
[2022-07-21 04:35] LABS: BASOPHILS ABSOLUTE AUTO 0.03 K/mm3 (0.00-0.23); BASOPHILS PERCENT AUTO 0 % (0-2); EOSINOPHILS PERCENT AUTO 0 % (0-6); Hematocrit 29.5 % (33.0-51.0); Hemoglobin 9.1 g/dL (11.5-16.0); IMMATURE GRAN ABSOLUTE AUTO 0.07 K/mm3 (0.00-0.10); IMMATURE GRAN PERCENT AUTO 1 % (0-1); LYMPHOCYTES ABSOLUTE AUTO 0.35 K/mm3 (0.84-5.20); LYMPHOCYTES PERCENT AUTO 4 % (21-46); MONOCYTES ABSOLUTE AUTO 0.49 K/mm3 (0.16-1.47); MONOCYTES PERCENT AUTO 5 % (4-13); Mean Corpuscular HGB 31.2 pg (26.0-34.0); Mean Corpuscular HGB Conc 30.8 g/dL (31.5-36.5); Mean Corpuscular Volume 101 fL (80-100); Mean Platelet Volume 10.1 fL (9.1-12.4); NEUTROPHILS ABSOLUTE AUTO 8.98 K/mm3 (1.96-9.15); NEUTROPHILS PERCENT AUTO 91 % (41-73); Platelet Count 195 K/mm3 (150-400); RDW Coefficient Variation 15.6 % (11.7-14.2); RDW Standard Deviation 58.4 fL (35.1-46.3); Red Blood Cell Count 2.92 M/mm3 (3.80-5.20); White Blood Cell Count 9.92 K/mm3 (4.00-11.30)
--- NOTE | 2022-07-21 04:43 | NUR ---
SHIFT SUMMARY PT ARRIVED FROM THE ER AT 2140 WITH A L HIP FRACTURE AND BRUISING AND ABRAISIONS ON HER LEFT ARM AND KNEE. SHE LIVES ALONE AND TRIPPED ON HER NC TUBING AND FELL. SHE IS ON 2L O2 AT BASELINE. PETROLIUM DRESSINGS WERE PLACED ON HER WOUNDS AND THEY WERE WRAPPED WITH NON ADHESIVE DRESSING. PT IS UNABLE TO AMBULATE DUE TO PAIN, SHE WAS GIVEN A FEMALE URINAL AND INSTRUCTED TO CALL IF SHE NEEDS TO HAVE A BM. SHE HAS A HX OF CDIFF AND REPORTS HAVING LOOSE STOOLS THE LAST FEW WEEKS, SHE IS PLACED ON ISOLATION PRECAUTIONS. SHE IS EXPERIENCING NAUSEA AND DRY HEAVING AND WAS GIVEN PRN ZOFRAN WHICH PT STATES ONLY HELPED FOR 30 MINUTES. PT STATES A MORAL OBJECTION TO TAKING MORPHINE, HER PAIN IS WELL CONTROLLED WHILE AT REST. SHE HAS AN ACTIVE ORDER FOR PALLIATIVE CARE CONSULT.
[2022-07-21 05:02] LABS: Albumin, Blood 3.2 g/dL (3.4-5.0); Bilirubin, Total 0.7 mg/dL (0.1-1.0); Bun/Creatinine Ratio 26.3 (12.0-20.0); Calcium, Blood 8.3 mg/dL (8.5-10.1); Creatinine, Blood 1.94 mg/dL (0.40-1.00); Globulin, Blood 3.1 g/dL (2.2-4.0); Potassium, Blood 5.4 mmol/L (3.5-5.5); Total Protein, Blood 6.3 g/dL (6.4-8.2)
--- NOTE | 2022-07-21 13:35 | NUR ---
[facility] referral received for s/s management after L Pubic Ramus fx. Attempted to make initial visit. Pt sleeping after lunch and am therapy sessions. EMR, PT notes & eMAR reviewed. Case conferenced with RN. Pt is declining fentanyl IV prn for pain. She has had tylenol once today. She has significant pain with any movement per PT eval and is demonstrating nonverbal indicators of pain while sleeping at this time. Pt has CKD, stage 3, adverse reaction listed for codeine and stated preference for no narcotics use. This will make managing her pain challenging and she may not be able to fully participate in mobilization and therapy with her mod to severe pain. I would recommend scheduling the tylenol for more regular dosing and better coverage. Applying ice and/or Lidocain patch may be helpful if pain localized. If pt experiencing nerve type pain, starting low dose of neurontin may be helpful.
--- NOTE | 2022-07-21 19:21 | NUR ---
SHIFT SUMMARY: C/O INTERMITTENT NAUSEA; NEW ORDER FOR COMPAZINE, ZOFRAN GIVEN X 1. C/O PAIN WITH MOVEMENT IN PELVIS AND LOW BACK; MEDICATED WITH TYLENOL, REFUSING ALL NARCOTICS AND CANNOT TAKE NSAIDS D/T KIDNEY FUNCTION. ON 2 L/MIN NC CONTINUOUS, BARREL CHESTED, ACC MUSCLE USE. USING BSC WITH 1 PERSON ASSIST, GAIT BELT, AND FWW. APPETITE IS VERY POOR. GAVE AND EDUCATED ABOUT INCENTIVE SPIROMETER, BUT STATED SHE HAS USED ONE IN THE PAST AND "DIDN'T DO WELL WITH IT." WEARING SCD'S. NO BM TODAY, SPECIMEN NEEDED.
--- NOTE | 2022-07-21 22:27 | NUR ---
2038 PT LYING IN BED, REPORTS PAIN IN PELVIC AREA AND LOWER BACK, WILL GIVE TYLENOL WHEN IT IS NEXT DUE AND EVAL FOR EFFECT. NON PRODUCTIVE COUGH. REPORTS SOB THAT INCREASES WITH EXERTION. ON 2L NC O2 AT 95%. HEMATOMA BY PELVIC FX. SKIN TEARS AND BRUISES ON L ARM AND L KNEE. SCD'S. IS. NO OTHER APPARENT SIGNS OF DISTRESS. CALL LIGHT IS IN REACH.
--- NOTE | 2022-07-21 23:46 | NUR ---
PT LYING IN BED, AWAKE, DENIES NEED FOR ANYTHING AT THIS TIME. CALL LIGHT IS IN REACH. NO APPARENT SIGNS OF DISTRESS.
--- NOTE | 2022-07-22 02:13 | NUR ---
PT SITTING UP ON EDGE OF BED, USED LIDOCAINE OINTMENT ON LOWER BACK. PT DENIES NEED FOR ANYTHING ELSE AT THIS TIME. CALL LIGHT IS IN REACH.
--- NOTE | 2022-07-22 03:53 | NUR ---
PT LYING IN BED, EYES CLOSED, APPEARS TO BE RESTING. BREATHING IS EVEN, UNLABORED. NO APPARENT SIGNS OF DISTRESS. CALL LIGHT IS IN REACH.
--- NOTE | 2022-07-22 03:54 | NUR ---
PT IS AAO X 4, REPORTS SOB THAT INCREASES WITH EXERTION. ON 2L O2 NC AT 98%. REPORTS PELVIC AND LOW BACK PAIN. PT DECLINES NARCOTICS AT THIS TIME. HAS USED LIDOCAINE GEL X 2 AND TYLENOL X 1. NON PRODUCTIVE COUGH. SCD'S, IS. FRAGILE SKIN, SKIN TEARS AND BRUISING TO L ARM AND L KNEE.
--- NOTE | 2022-07-22 05:14 | NUR ---
PT LYING IN BED, EYES CLOSED, APPEARS TO BE RESTING. WAKES EASILY TO VERBAL STIMULI. NO APPARENT SIGNS OF DISTRESS. CALL LIGHT IS IN REACH. DENIES NEED FOR ANYTHING AT THIS TIME. NO OTHER CHANGES THIS SHIFT.
[2022-07-22 14:24] LABS: C DIFFICILE DNA Formed (Negative)
--- NOTE | 2022-07-22 17:56 | NUR ---
SHIFT SUMMARY: PAINFUL WITH MOVEMENT. GETTING FROM BED TO CHAIR/BSC WITH 1 PERSON ASSIST, GAIT BELT, AND FWW. HAD 3 BM'S TODAY; FIRST BM WAS FORMED, SPECIMEN SENT, NOT RESULTED. STOOL IS NOW LOOSE, CALLED LAB, WILL PLACE ORDER FOR GI PANEL OK PER DR. OTERO. DRESSINGS ON LLE AND LUE CHANGED, TOLERATED WELL. APPETITE REAMINS POOR, IS DRINKING ENSURE. GAVE COMPAZINE FOR NAUSEA THIS MORNING; STATED IT MADE HER FEEL "WACKY" AND SLEEPY, SLEPT FOR A SHORT TIME.
--- NOTE | 2022-07-22 22:09 | NUR ---
2030 PT LYING IN BED, REPORTS PAIN IN PELVIC AND LOWER BACK AREA, GAVE TYLENOL AND SCHEDULED NEURONTIN AND LIDOCAINE GEL, WILL EVAL FOR EFFECT. REPORTS SOB THAT INCREASES WITH EXERTION, HAS A NONPRODUCTIVE COUGH. ON 2L NC O2 AT 92%. USING INCENTIVE SPIROMETER AND A FLUTTER VALVE. SKIN TEARS AND BRUISES ON L ARM AND L KNEE. IV NO LONGER PATENT, DC'D IV. WILL SPEAK WITH DR ABOUT GETTING AN OK TO LEAVE IV OUT PER PT'S WISHES. NO OTHER APPARENT SIGNS OF DISTRESS. CALL LIGHT IS IN REACH.
--- NOTE | 2022-07-22 22:45 | NUR ---
PT LYING IN BED, AWAKE, NO APPARENT SIGNS OF DISTRESS. CALL LIGHT IS IN REACH.
--- NOTE | 2022-07-22 23:39 | NUR ---
PT LYING IN BED, EYES CLOSED, APPEARS TO BE RESTING. BREATHING IS EVEN, UNLABORED. NO APPARENT SIGNS OF DISTRESS. CALL LIGHT IS IN REACH.
--- NOTE | 2022-07-23 01:44 | NUR ---
PT LYING IN BED, EYES CLOSED, APPEARS TO BE RESTING. BREATHING IS EVEN, UNLABORED. NO APPARENT SIGNS OF DISTRESS. CALL LIGHT IS IN REACH.
--- NOTE | 2022-07-23 04:43 | NUR ---
PT LYING IN BED, EYES CLOSED, APPEARS TO BE RESTING. BREATHING IS EVEN, UNLABORED. NO APPARENT SIGNS OF DISTRESS. CALL LIGHT IS IN REACH.
--- NOTE | 2022-07-23 04:44 | NUR ---
PT IS AAO X 4, REPORTS SOB THAT INCREASES WITH EXERTION, ON 2L NC O2 AT 92%. REPORTS PAIN IN PELVIC AND LOWER BACK AREA, GOT TYLENOL AT HS. SCD'S, IS, FLUTTER VALVE.
--- NOTE | 2022-07-23 05:41 | NUR ---
PT LYING IN BED, EYES CLOSED, APPEARS TO BE RESTING. BREATHING IS EVEN, UNLABORED. NO APPARENT SIGNS OF DISTRESS. CALL LIGHT IS IN REACH. NO OTHER CHANGES THIS SHIFT.
[2022-07-23 06:06] LABS: BASOPHILS ABSOLUTE AUTO 0.01 K/mm3 (0.00-0.23); BASOPHILS PERCENT AUTO 0 % (0-2); EOSINOPHILS ABSOLUTE AUTO 0.06 K/mm3 (0.00-0.68); EOSINOPHILS PERCENT AUTO 1 % (0-6); Hematocrit 28.5 % (33.0-51.0); Hemoglobin 8.7 g/dL (11.5-16.0); IMMATURE GRAN ABSOLUTE AUTO 0.06 K/mm3 (0.00-0.10); IMMATURE GRAN PERCENT AUTO 1 % (0-1); LYMPHOCYTES ABSOLUTE AUTO 0.75 K/mm3 (0.84-5.20); LYMPHOCYTES PERCENT AUTO 9 % (21-46); MONOCYTES ABSOLUTE AUTO 0.63 K/mm3 (0.16-1.47); MONOCYTES PERCENT AUTO 7 % (4-13); Mean Corpuscular HGB Conc 30.5 g/dL (31.5-36.5); Mean Corpuscular Volume 101 fL (80-100); Mean Platelet Volume 10.8 fL (9.1-12.4); NEUTROPHILS ABSOLUTE AUTO 7.01 K/mm3 (1.96-9.15); NEUTROPHILS PERCENT AUTO 82 % (41-73); Platelet Count 172 K/mm3 (150-400); RDW Coefficient Variation 15.6 % (11.7-14.2); RDW Standard Deviation 58.4 fL (35.1-46.3); Red Blood Cell Count 2.81 M/mm3 (3.80-5.20); White Blood Cell Count 8.52 K/mm3 (4.00-11.30)
[2022-07-23 06:46] LABS: Albumin, Blood 2.6 g/dL (3.4-5.0); Anion Gap 6 mmol/L (6-16); Blood Urea Nitrogen 69 mg/dL (8-24); Bun/Creatinine Ratio 32.2 (12.0-20.0); CO2, Blood 27 mmol/L (21-32); Calcium, Blood 8.2 mg/dL (8.5-10.1); Chloride, Blood 107 mmol/L (98-108); Creatinine, Blood 2.14 mg/dL (0.40-1.00); Glomerular Filtration Rate 24 (60-); Glucose, Blood 73 mg/dL (70-99); Phosphorus, Blood 3.8 mg/dL (2.5-4.9); Potassium, Blood 5.1 mmol/L (3.5-5.5); Sodium, Blood 140 mmol/L (136-145)
[2022-07-23 12:10] LABS: Campylobacter Sp Not Detected (NOT DETECT); Plesiomonas Shigelloides Not Detected (NOT DETECT); Salmonella Sp Not Detected (NOT DETECT); Yersinia Enterocolitica Not Detected (NOT DETECT)
[2022-07-23 12:11] LABS: Adenovirus F 40/41 Not Detected (NOT DETECT); Astrovirus Not Detected (NOT DETECT); Cryptosporidium Not Detected (NOT DETECT); Cyclospora Cayetanensis Not Detected (NOT DETECT); E. Coli O157 Not Detected (NOT DETECT); Entamoeba Histolytica Not Detected (NOT DETECT); Enteroaggregative E. coli-EAEC Not Detected (NOT DETECT); Enteropathogenic E. coli-EPEC Not Detected (NOT DETECT); Enterotoxigenic E. coli-ETEC Not Detected (NOT DETECT); Giardia Lamblia Not Detected (NOT DETECT); Norovirus GI/GII Not Detected (NOT DETECT); Rotavirus A Not Detected (NOT DETECT); Sapovirus Not Detected (NOT DETECT); Shiga Toxin-prod E. coli-STEC Not Detected (NOT DETECT); Shigella/Enteroin E. coli-EIEC Not Detected (NOT DETECT); Vibrio Cholerae Not Detected (NOT DETECT); Vibrio Sp Not Detected (NOT DETECT)
--- NOTE | 2022-07-23 16:45 | NUR ---
SHIFT SUMMARY: PT WAS ABLE TO GET UP FROM RECLINER AND WALK TO BR USING FWW AND 1 PERSON ASSIST. DANGLED AT BEDSIDE FOR AN HOUR AFTER. PAIN ADEQUATELY CONTROLLED AT THIS TIME, STILL HAVING INCREASED PAIN WITH WEIGHT BEARING. GI PANEL RESULTED NEGATIVE FOR C DIFF, PRECAUTIONS REMOVED, STARTED ON IMODIUM TO CONTROL DIARRHEA. APPETITE POOR, IS DRINKING ENSURE. O2 @ 2 L/MIN NC CONTINUOUS, SHE HAS INCREASED HER PULMONARY TOILET TO PREVENT PNA. DRESSINGS ON LUE AND LLE SKIN TEARS CD&I. DAUGHTERS FROM [place] VISITED.
--- NOTE | 2022-07-23 22:41 | NUR ---
2023 PT LYING IN BED, REPORTS L SIDE/PELVIC PAIN, GAVE TYLENOL AND NEURONTIN, WILL EVAL FOR EFFECT. DENIES SOB, HAS NON PRODUCTIVE COUGH, ON 2L NC O2 AT 97%. FRAGILE SKIN, SKIN TEARS AND BRUISING ON L ARM AND L KNEE, DRESSINGS ARE C/D/I. NO OTHER APPARENT SIGNS OF DISTRESS. CALL LIGHT IS IN REACH.
--- NOTE | 2022-07-23 23:41 | NUR ---
PT LYING IN BED, EYES CLOSED, APPEARS TO BE RESTING. BREATHING IS EVEN, UNLABORED. NO APPARENT SIGNS OF DISTRESS. CALL LIGHT IS IN REACH.
--- NOTE | 2022-07-24 02:47 | NUR ---
PT LYING IN BED, AWAKE. EATING HER SNACK THAT HER FAMILY BROUGHT HER. PT DENIES NEED FOR ANYTHING ELSE AT THIS TIME. CALL LIGHT IS IN REACH. NO APPARENT SIGNS OF DISTRESS.
--- NOTE | 2022-07-24 03:39 | NUR ---
ASSISTED PT BACK TO BED FROM THE BATHROOM. PT AMBULATED WELL WITH 1 ASSIST AND A FWW. PT REPORTS GAS PAIN AND THAT SHE MIGHT FEEL LIKE SHE HAS TO HAVE A BM AGAIN SOON. THIS TIME THERE WAS JUST A SMEAR FOR THE BM. PT DENIES THE NEED FOR ANYTHING ELSE AT THIS TIME. NO OTHER APPARENT SIGNS OF DISTRESS. CALL LIGHT IS IN REACH.
--- NOTE | 2022-07-24 03:40 | NUR ---
PT IS AAO X 4, REPORTED L SIDE PAIN, GOT NEURONTIN AND TYLENOL AND LIDOCAINE GEL. DENIED SOB BUT IS ON 2LNC O2 AT 100% AND HAS A NONPRODUCTIVE COUGH. FRAGILE SKIN WITH SKIN TEARS AND BRUISING ON LARM AND L KNEE.
--- NOTE | 2022-07-24 06:13 | NUR ---
PT REQUESTED PEPTO, NONE ORDERED, GAVE PT ZOFRAN, WILL EVAL FOR EFFECT AND CALL THE DR WITH THE PT'S REQUEST. NO OTHER APPARENT SIGNS OF DISTRESS. CALL LIGHT IS IN REACH. NO OTHER CHANGES THIS SHIFT.
--- NOTE | 2022-07-24 11:32 | NUR ---
CALLED DR OTERO- ON MORNING ASSESSMENT, PT MENTIONED THE LEFT SIDE OF HER THROAT HAS BEEN A LITTLE SORE THE "LAST COUPLE OF DAYS" NOTED THERE WERE WHITE PATCHES IN THE BACK OF HER MOUTH AND THROAT WELL HER TOUNG. SPOKE TO DR OTERO AND RECIEVED AN ORDER FOR TROCH LOZENGE QID. ALSO SPOKE TO HER ABOUT THE PT FREQUENT LIQUID AND FOAMY STOOLS, IMMODIUM GIVE WELL PEPTO.
[2022-07-24] MEDS ORDERED: CLOT10 MT (15:53)
[2022-07-24] MEDS ORDERED: GABA100 PO (15:54)
[2022-07-24] MEDS ORDERED: LIDO5TO TOP (15:55)
[2022-07-24] MEDS ORDERED: LOPE2C PO (15:55)
[2022-07-24] MEDS ORDERED: ONDA4 PO (15:56)
[2022-07-24 16:49] LABS: Influenza A, PCR NEGATIVE (NEGATIVE); Influenza B, PCR NEGATIVE (NEGATIVE); Resp Syncytial Virus, PCR NEGATIVE (NEGATIVE); SARS-Cov-2 (COVID-19) PCR, MMC NEGATIVE (NEGATIVE)
--- NOTE | 2022-07-24 18:48 | NUR ---
SHIFT SUMMARY- PT ALERT AND ORIENTED. PT ATE WELL AT BREAKFAST THIS MORNING, THEN SHE PRODUCED [address]OLS. SPOKE TO DR OTERO. PT RECIEVED PO PEPTO AND IMMODUIM. THEN HER STOMACH SETTLED. PER MD PT SHOULD BE REDUCED TO A CLEAR LIQUID DIET FOR NOW AND INCREASE TOLLERATED. SWITCHED DIET TO CLEARS THIS EVENING FOR DINNER. SO PT HAD AN ENSURE CLEAR, BROTH AND JELLO. SO FAR NO STOOLS. WILL CTM. PT WAS SUPPOSED TO DC TO [facility] TODAY HOWEVER D/T THE 5 EPISODES OF LOOSE STOOLS THEY REQUESTED A R/O C-DIFF EVEN THOUGH IT HAD RECENTLY BEEN DONE. DR AWARE OF THE REQUEST. PT TESTED NEGATIVE FOR C-DIFF PRIOR. PER CARE MANAGEMENT THE PT SHOULD BE ABLE TO DC TOMORROW TO [facility].
--- NOTE | 2022-07-24 19:30 | NUR ---
RECEIVED BEDSIDE REPORT FROM DAYSHIFT RN. NO NEEDS AT THIS TIME. CALL LIGHT IN REACH.
--- NOTE | 2022-07-24 20:00 | NUR ---
A/O. PLEASANT AND COOPERATIVE WITH CARE. ON 2L PT'S BASELINE. A LITTLE SOB WITH ACTIVITY BUT GETTING BETTER PER PT. MOBILITY IS GETTING BETTER, LESS PAINFUL. ON CLEAR LIQUIDS AFTER HAVING SOME DIARRHEA DURING DAYSHIFT. MEDS WHOLE WITH WATER. NO OTHER NEEDS. CALL LT IN REACH.
--- NOTE | 2022-07-24 22:00 | NUR ---
PT RESTING QUIETLY. EYES CLOSED. RESP E/U. CALL LT IN REACH.
--- NOTE | 2022-07-25 00:16 | NUR ---
PT RESTING QUIETLY. CALL LT IN REACH.
--- NOTE | 2022-07-25 01:27 | NUR ---
JELLO AND FRESH ICE WATER GIVEN TO PT. CALL LT IN REACH.
--- NOTE | 2022-07-25 02:00 | NUR ---
PT RESTING QUIETLY. RESP E/U. CALL LT IN REACH.
--- NOTE | 2022-07-25 03:57 | NUR ---
SHIFT SUMMARY: A/O. PLEASANT AND COOPERATIVE WITH CARE. ON 2L VIA NC WHICH IS HER BASELINE. CONTINUES TO GET A LITTLE SOB DURING ACTIVITY. TAKES MEDS WHOLE IN WATER. CURRENTLY ON CLEAR LIQUIDS, APPEARS TO BE TOLERATING THIS DIET. TYLENOL GIVEN ONCE FOR SOME LEFT HIP PAIN. MOBILITY IS IMPROVING. NO ACUTE CHANGES. WILL CONTINUE TO PROVIDE CARE UNTIL SHIFT REPORT.
--- NOTE | 2022-07-25 04:00 | NUR ---
PT CONTINUES TO REST QUIETLY. CALL LT IN REACH.
--- NOTE | 2022-07-25 06:00 | NUR ---
PT RESTING QUIETLY. CALL LT IN REACH.
--- NOTE | 2022-07-25 15:40 | NUR ---
DISCHARGE NOTES- PT ALERT AND ORIENTED, MOOD SEEMS GREATLY IMPROVED THIS SHIFT, PT STATED PAIN IS WELL MANAGED TODAY WELL. PT ALSO STATED HER SORE THROAT (ON THE LEFT SIDE) IS GONE NOW WELL. PT WAS DISCHARGED TO [facility] FOR REHAB, TAKEN VIA VAN. NO S&S OF DISTRESS AT THE TIME OF DISCHARGE.
== END 2022-07-25 15:33 ==
LOC: ER 17:43 → MEDS 21:33
PROVIDERS: Family Medicine; Student in an Organized Health Care Education/Training Program; ADMIT Internal Medicine
DX: S32.512A Fracture of superior rim of left pubis, initial encounter for closed fracture (principal); S32.592A Other specified fracture of left pubis, initial encounter for closed fracture; S32.19XA Other fracture of sacrum, initial encounter for closed fracture; S22.32XA Fracture of one rib, left side, initial encounter for closed fracture; W01.0XXA Fall on same level from slipping, tripping and stumbling without subsequent striking against object, initial encounter; J44.9 Chronic obstructive pulmonary disease, unspecified; K21.9 Gastro-esophageal reflux disease without esophagitis; I12.9 Hypertensive chronic kidney disease with stage 1 through stage 4 chronic kidney disease, or unspecified chronic kidney disease; N18.4 Chronic kidney disease, stage 4 (severe); E05.90 Thyrotoxicosis, unspecified without thyrotoxic crisis or storm; M10.9 Gout, unspecified; M81.0 Age-related osteoporosis without current pathological fracture; E46 Unspecified protein-calorie malnutrition; Z88.5 Allergy status to narcotic agent; Z88.1 Allergy status to other antibiotic agents; Z79.82 Long term (current) use of aspirin; Z79.899 Other long term (current) drug therapy; Z20.822 Contact with and (suspected) exposure to COVID-19
CPT/HCPCS: 0241U; 36415; 71101; 73502; 73700; 80053; 80069; 83735; 84550; 85025; 87507; 90714; 93971; 94640; 94664; 94668; 94760; 96374; 96375; 97110; 97116; 97116-CQ; 97162; 97165; 97530; 97530-CO; 97530-CQ; 97535-CO; 98960; 99285-25; A9270; G0378; J2270; J2405; J7030; Q0164

== ENCOUNTER 2022-08-02 18:04 | Inpatient (IN) | payer MEDICARE, OTHER ==
[~2022-08-02] VITALS: Ht 157.5 cm; Wt 49.6 kg
[~2022-08-02 18:04] MED LIST changes: +ACET500 PO; +BRIMONIDINE TART5 ML BOTHEYES; +CALC.25 PO; +CLOT10 MT; +COLCRYS0.6 M1 PO; -Calcitriol0.25 MCG PO; +GABA100 PO; +LIDO5TO TOP; +LOPE2C PO; +ONDA4 PO
[2022-08-02 18:55] LABS: Hematocrit 28.2 % (33.0-51.0); Hemoglobin 9.1 g/dL (11.5-16.0); Mean Corpuscular HGB 31.9 pg (26.0-34.0); Mean Corpuscular HGB Conc 32.3 g/dL (31.5-36.5); Mean Corpuscular Volume 99 fL (80-100); Mean Platelet Volume 10.5 fL (9.1-12.4); NRBC ABSOLUTE 0.02 K/mm3 (0.00-0.02); NRBC Auto 0.1 /100 WBC (0.0-0.2); Platelet Count 315 K/mm3 (150-400); RDW Coefficient Variation 15.5 % (11.7-14.2); RDW Standard Deviation 55.8 fL (35.1-46.3); Red Blood Cell Count 2.85 M/mm3 (3.80-5.20); White Blood Cell Count 20.83 K/mm3 (4.00-11.30)
[2022-08-02 19:04] LABS: Albumin, Blood 2.3 g/dL (3.4-5.0); Albumin/Globulin Ratio 0.6 (0.8-1.8); Bilirubin, Total 0.2 mg/dL (0.1-1.0); Bun/Creatinine Ratio 40.2 (12.0-20.0); Calcium, Blood 8.2 mg/dL (8.5-10.1); Creatinine, Blood 2.59 mg/dL (0.40-1.00); Globulin, Blood 4.1 g/dL (2.2-4.0); Potassium, Blood 6.7 mmol/L (3.5-5.5); Total Protein, Blood 6.4 g/dL (6.4-8.2)
[2022-08-02 19:15] LABS: BAND PERCENT MAN 2 % (0-8); BASOPHILS PERCENT MAN 0 % (0-2); EOSINOPHILS PERCENT MAN 0 % (0-6); MONOCYTES ABSOLUTE MAN 0.41 K/mm3 (0.16-1.47); MONOCYTES PERCENT MAN 2 % (4-13); NEUTROPHILS ABSOLUTE MAN 20.41 K/mm3 (1.96-9.15); SEG NEUTROPHILS PERCENT MAN 96 % (41-73); TOTAL CELLS COUNTED 100
[2022-08-02 23:16] LABS: Bun/Creatinine Ratio 41.3 (12.0-20.0); Calcium, Blood 7.1 mg/dL (8.5-10.1); Creatinine, Blood 2.42 mg/dL (0.40-1.00); Magnesium, Blood 2.1 mg/dL (1.6-2.4); Phosphorus, Blood 4.1 mg/dL (2.5-4.9); Potassium, Blood 5.9 mmol/L (3.5-5.5)
[2022-08-03 02:36] LABS: Influenza A, PCR NEGATIVE (NEGATIVE); Influenza B, PCR NEGATIVE (NEGATIVE); Resp Syncytial Virus, PCR NEGATIVE (NEGATIVE); SARS-Cov-2 (COVID-19) PCR, MMC NEGATIVE (NEGATIVE)
--- NOTE | 2022-08-03 02:54 | NUR ---
PT UPDATE ASSUMED CARE OF PT AT 2310. PT IS A/OX4. HEART SOUNDS REGULAR. LUNG SOUNDS HAVE CRACKLES T/O. PT ON 3L NC. SATURATIONS HAVE BEEN DIFFICULT TO GET DUE TO POOR PERFUSION BUT WITH NASAL OXIMETRY IT IS 96%. PT HAS HAD 3 IV INFILTATE AND ONE GOING NOW. PT MAP HAS BEEN IN THE 50S SINCE ARRIVAL, 250 BOLUS STARTED AND RESIDENT HOSPITALIST NOTIFED. MANUAL BP CHECKED AND PT MAP WAS STILL LOW AFTER BOLUS SO HOSPITALIST ORDERED ANOTHER 500 BOLUS, BUT PT IV INFILTRATED. PT BP CHECK AGAIN VIA MANUAL AND DOPPLER AND BP WAS 40/28. HOSPITALIST PRETTI CALLED AND SAID TO MOVE PT TO ICU ON LEVOPHED. PT STATES THAT SHE FELL AND FX HER HIP AND BROKE TWO RIBS, BUT WAS ABLE TO TX FROM [facility] TO BS WITH 1P SBA TO BSC. BRUSING T/O L SIDE AND ARMS. PT STATES SHE JUST FEELS SICK BUT DOESNT KNOW WHAT IS WRONG. PT GOING TO ICU 2, AWAITING TO GIVE REPORT TO VIOLA.
--- NOTE | 2022-08-03 04:32 | NUR ---
PT. CAME OVER FROM PCU FOR HYPOTENSION. PT. STARTED ON LEVOPHED ONCE IN ROOM, AND IS NOW AT 105/67 (77) ON 1 OF LEVOPHED. PT. RESTING COMFORTABLY AT THIS TIME.
[2022-08-03 04:36] LABS: BASOPHILS ABSOLUTE AUTO 0.03 K/mm3 (0.00-0.23); BASOPHILS PERCENT AUTO 0 % (0-2); EOSINOPHILS ABSOLUTE AUTO 0.06 K/mm3 (0.00-0.68); EOSINOPHILS PERCENT AUTO 0 % (0-6); Hematocrit 24.8 % (33.0-51.0); Hemoglobin 7.5 g/dL (11.5-16.0); IMMATURE GRAN ABSOLUTE AUTO 0.14 K/mm3 (0.00-0.10); IMMATURE GRAN PERCENT AUTO 1 % (0-1); LYMPHOCYTES ABSOLUTE AUTO 0.39 K/mm3 (0.84-5.20); LYMPHOCYTES PERCENT AUTO 2 % (21-46); MONOCYTES ABSOLUTE AUTO 0.64 K/mm3 (0.16-1.47); MONOCYTES PERCENT AUTO 4 % (4-13); Mean Corpuscular HGB Conc 30.2 g/dL (31.5-36.5); Mean Corpuscular Volume 103 fL (80-100); Mean Platelet Volume 10.2 fL (9.1-12.4); NEUTROPHILS ABSOLUTE AUTO 14.95 K/mm3 (1.96-9.15); NEUTROPHILS PERCENT AUTO 92 % (41-73); Platelet Count 286 K/mm3 (150-400); RDW Coefficient Variation 15.7 % (11.7-14.2); RDW Standard Deviation 59.5 fL (35.1-46.3); Red Blood Cell Count 2.42 M/mm3 (3.80-5.20); White Blood Cell Count 16.21 K/mm3 (4.00-11.30)
--- NOTE | 2022-08-03 05:21 | NUR ---
PT. CAME OVER FROM PCU, WHEN DOCUMENTING THE POWER WENT OFF AND LOCKED OUT THE SESSION. ASSESSMENT FOLLOWS: NEURO- PT. IS ALERT AND ORIENTED X4 CARDIO- PT. CAME OVER FOR HYPOTENSION, LEVOPHED STARTED, HR 90S IN AFIB RESP- PT. SATTING 95% ON 1L NC GI- PT. IS SOFT AND NONTENDER, HAS ACTIVE BOWEL TONES AND PT. NOT COMPLAINING OF BOWEL PAIN AT THIS TIME. - PT. IS ABLE TO USE BEDSIDE COMMODE TO VOID, HAS NOT HAD A VOID FOR ME SINCE ARRIVING SKIN- PT. HAS BRUISING THROUGHOUT THE BODY, PREDOMINANTLY ON HANDS AND UPPER ARMS PT. CALL LIGHT WITHIN REACH AND PT. IS RESTING COMFORTABLY AT THIS TIME.
[2022-08-03 05:36] LABS: Albumin, Blood 1.9 g/dL (3.4-5.0); Albumin/Globulin Ratio 0.5 (0.8-1.8); Bilirubin, Total 0.3 mg/dL (0.1-1.0); Bun/Creatinine Ratio 41.5 (12.0-20.0); Calcium, Blood 6.5 mg/dL (8.5-10.1); Creatinine, Blood 2.34 mg/dL (0.40-1.00); Globulin, Blood 3.8 g/dL (2.2-4.0); Potassium, Blood 5.9 mmol/L (3.5-5.5); Total Protein, Blood 5.7 g/dL (6.4-8.2)
--- NOTE | 2022-08-03 05:42 | NUR ---
SHIFT SUMMARY: PT. IS ON LEVOPHED FOR HYPOTENSION AND IS CURRENTLY IN AFIB WITH A RATE OF 90-100. PT. IS SATTING ABOVE 95% ON 1L NC, BASELINE AT HOME IS 2. PT. IS ALERT AND ORIENTED AND IS ABLE TO CALL FOR ASSISTANCE WHEN NEEDED FOR REPOSITIONING OR ANY OTHER CONCERNS. PT. IS BEING MONITORED CLOSELY FOR LEVOPHED TITRATION AND IS RESTING COMFORTABLY WITH CALL LIGHT IN REACH.
[2022-08-03 09:35] LABS: Source, Urine Foley catheter
[2022-08-03 09:48] LABS: Appearance, Urine Clear (Clear); Bilirubin, Urine Neg (Neg); Blood, Urine Neg (Neg); Color, Urine Yellow (P-Yellow); Glucose Qualitative, Urine Neg (Neg); Ketones, Urine Neg (Neg); Leukocyte Esterase, Urine Neg (Neg); Nitrite, Urine Neg (Neg); Protein, Urine 1+ (Neg); Specific Gravity, Urine 1.015 (1.003-1.022); Urobilinogen, Urine NORM (Normal)
--- NOTE | 2022-08-03 11:51 | NUR ---
REASSESSMENT PT HAS BEEN RESTING IN BED THROUGHOUT THE MORNING. SHE HAS BEEN ALERT AND ORIENTED DESPITE VARYING BLOOD PRESSURES, SOMETIMES LOW SBP 50. LEVOPHED TITRATED WITH LITTLE EFFECT SO DR. SANDOVAL NOTIFIED OF THE VARYING BPS AND QUESTIONING THEIR ACCURACY. RECEIVED ORDER FOR CRITICAL CARE CONSULT. DR. KNOTT NOTIFIED AND ARTERIAL LINE PLACED. LEVOPHED BEING TITRATED ACCORDINGLY, SEE FLOWSHEET. PICC LINE ALSO PLACED THIS MORNING FOR PRESSOR ADMINISTRATION. PT'S LUNGS REMAINS COARSE THIS AFTERNOON, ON 3L/NC. SR RATE IN THE 80S. PT WAS SVT 140S THIS MORNING, THEN SLOWED DOWN SPONTANEOUSLY AROUND 0800 AND HAS MAINTAINED A RATE BELOW 100. BROWN PLACED WELL THIS AM PT HAD 300ML IN HER BLADDER AND WASN'T ABLE TO VOID. PT'S ESTRADA CALLED AND RECEIVED UPDATE FROM CHARGE NURSE AND THEN ALSO SPOKE WITH PT.
--- NOTE | 2022-08-03 17:19 | NUR ---
SHIFT SUMMARY PT CONTINUES TO REQUIRE LEVOPHED TO SUPPORT HER BLOOD PRESSURE. SHE SWITCHED BACK TO AFIB AT A CONTROLLED RATE IN THE 70S AND 80S AROUND 1230 TODAY. SHE REMAINS ALERT AND ORIENTED. REQUIRES 3L/NC TO KEEP SATS ABOVE 90%. LUNGS REMAIN COARSE WITH A VERY MOIST COUGH, BUT PT SAYS SHE HAS NOT BEEN ABLE TO ACTUALLY COUGH ANYTHING UP. BROWN DRAINING YELLOW URINE WITH A SMALL AMT OF MUCOUSY SEDIMENT. PT WAS SIPPING ON FLUIDS THROUGHOUT THE DAY AND IS EATING DINNER CURRENTLY. SHE RECEIVED AN ADDITIONAL DOSE OF LOKELMA THIS EVENING PER DR. KHAN'S ORDERS. CONTINUING TO MONITOR.
[2022-08-03 21:30] LABS: Anti-Xa UFH, PHA Monitoring <0.10 IU/mL; International Normalized Ratio 0.97; Prothrombin Time Results 10.2 Sec (9.7-11.5)
[2022-08-04 03:48] LABS: BASOPHILS ABSOLUTE AUTO 0.04 K/mm3 (0.00-0.23); BASOPHILS PERCENT AUTO 0 % (0-2); EOSINOPHILS ABSOLUTE AUTO 0.04 K/mm3 (0.00-0.68); EOSINOPHILS PERCENT AUTO 0 % (0-6); Hematocrit 22.4 % (33.0-51.0); Hemoglobin 6.9 g/dL (11.5-16.0); IMMATURE GRAN ABSOLUTE AUTO 0.57 K/mm3 (0.00-0.10); IMMATURE GRAN PERCENT AUTO 3 % (0-1); LYMPHOCYTES ABSOLUTE AUTO 0.46 K/mm3 (0.84-5.20); LYMPHOCYTES PERCENT AUTO 3 % (21-46); MONOCYTES ABSOLUTE AUTO 0.59 K/mm3 (0.16-1.47); MONOCYTES PERCENT AUTO 3 % (4-13); Mean Corpuscular HGB 31.4 pg (26.0-34.0); Mean Corpuscular HGB Conc 30.8 g/dL (31.5-36.5); Mean Corpuscular Volume 102 fL (80-100); NEUTROPHILS ABSOLUTE AUTO 16.62 K/mm3 (1.96-9.15); NEUTROPHILS PERCENT AUTO 91 % (41-73); NRBC ABSOLUTE 0.02 K/mm3 (0.00-0.02); NRBC Auto 0.1 /100 WBC (0.0-0.2); Platelet Count 354 K/mm3 (150-400); RDW Coefficient Variation 15.8 % (11.7-14.2); RDW Standard Deviation 58.4 fL (35.1-46.3); White Blood Cell Count 18.32 K/mm3 (4.00-11.30)
[2022-08-04 04:09] LABS: Magnesium, Blood 1.8 mg/dL (1.6-2.4)
[2022-08-04 04:26] LABS: Albumin, Blood 1.8 g/dL (3.4-5.0); Anion Gap 7 mmol/L (6-16); Blood Urea Nitrogen 86 mg/dL (8-24); CO2, Blood 19 mmol/L (21-32); Calcium, Blood 6.1 mg/dL (8.5-10.1); Chloride, Blood 106 mmol/L (98-108); Creatinine, Blood 2.05 mg/dL (0.40-1.00); Glomerular Filtration Rate 25 (60-); Glucose, Blood 182 mg/dL (70-99); Phosphorus, Blood 4.4 mg/dL (2.5-4.9); Potassium, Blood 5.3 mmol/L (3.5-5.5); Sodium, Blood 132 mmol/L (136-145)
--- NOTE | 2022-08-04 05:19 | NUR ---
SHIFT SUMMARY: PT. HAS BEEN COMPLAINING OF STOMACH PAIN AND NAUSEA THROUGHOUT THE NIGHT, PRN MEDICATIONS GIVEN TO EASE DISCOMFORT. PT. WAS ABLE TO BE TITRATED DOWN ON HER LEVOPHED FROM 16 TO 7 AND VASOPRESSIN IS ON. HEPARIN WAS STARTED FOR THE PATIENT OVERNIGHT AND WAS WITHIN RANGE ON MORNING LABS. O2 SATURATION HAS BEEN DIFFICULT TO READ WITH SENSORS NOT PICKING UP, BUT PT. IS ABOVE 95% WHEN SPOT CHECKED EVERY HOUR ON 2L NC. HR HAS BEEN NSR IN THE 80S AND EKG SHOWED A PROLONGED QT INTERVAL. BROWN IS PATENT AND DRAINING TO GRAVITY, 375 OF UOP OVERNIGHT. STOMACH IS TENDER AND PT. HAS HAD SEVERAL FORMED BROWN BOWEL MOVEMENTS OVERNIGHT. PT. IS RESTING IN BED AT THIS TIME WITH CALL LIGHT IN REACH.
--- NOTE | 2022-08-04 10:00 | NUR ---
AM NOTE: ASSUMED CARE OF PT AT 0700. PT IS A&O X 4. CRACKLES THROUHGOUT AND DIM IN THE BASES; PT ON 2L VIA NC. SPO2 PROBE READINGS INCONSISTENT, DR CABEZAS AND DR LIGHT INFORMED AND ORDERS FOR AN ABG (SEE LAB FOR RESUTLS). S1/S2 ASCULTATED WITH SBP IN THE 110'S AN HR IN THE 80'S. ART LINE IN PLACE; SITE WNL. PT HAS FLOR SCHEUDLED FOR 1030 AND IS NPO THIS MORNING IN PREPARATION. PT HAS HYPOACTIVE BS IN ALL QUADRANTS. PT HAS BROWN CATHETER IN PLACE AND DRAINING TO GRAVITY; URINE CLEAR AND YELLOW. PT USES BEDPAN FOR BM. PT PPP IN UPPER EXTREMITIES PALPATED AND DOPPLER IN LOWER EXTREMITIES. PT HAS COOL FINGERS AND TOES. PT HGB AT 6.[address] LOWE INFORMED. ORDERS FOR 1 UNIT OF PRBC'S ORDERED. PT HAS LITTLE APPETITE TODAY. WILL CONTINUE TO MONITOR THROUGHOUT THE DAY.
[2022-08-04 10:02] LABS: PCO2 Arterial 52.8 mmHg (35-45)
[2022-08-04 10:03] LABS: pH Blood Arterial 7.13 (7.35-7.45)
[2022-08-04 10:22] LABS: Hematocrit 21.8 % (33.0-51.0); Hemoglobin 6.8 g/dL (11.5-16.0)
[2022-08-04 16:05] LABS: PCO2 Arterial 53.7 mmHg (35-45); PO2 Arterial 58.8 mmHg (80-100); pH Blood Arterial 7.11 (7.35-7.45)
--- NOTE | 2022-08-04 18:13 | NUR ---
SHIFT SUMMARY: PT CONTINUES TO BE A&O X 4. PT HAS CRACKLES THROUGOUT AND DIMINISHED IN THE BASES; PT IS ON 4 L VIA NC. PT HAS HR IN THE 90'S WITH SBP 90'S; LEVOPHED IS RUNNING AT 4 MCG/MIN. ART LINE IS IN PLACE. PT PH AT 7.11 AND HAS RECIEVED 100 MEQ'S OF BICARB IV PUSH. THE PT HAS REMAINED NPO STATUS DUE TO RISK OF ASPIRATION. DR CABEZAS SPOKE WIHT THE PT THIS AFTERNOON AT 1445 AND DISCUSSED CODE STATUS, AND PT HAS DECIDED TO GO DNR. WRISTBAND IS IN PLACE ON THE R. WRIST. DR. CABEZAS SPOKE WITH THE PT'S DAUGHTERS AND UPDATED THEM; THE DAUGHTERS PLAN ON COMING IN TOMORROW AND A FAMILY MEETING WILL BE HELD. THE PT HAS HYPOACTIVE BS IN ALL QUADRANTS. BROWN CATHETER IN PLACE AND DRAINING TO GRAVITY. PT HAS HAD NAUSEA THROUGHOUT THE DAY; PT MEDICATED WITH 12.5 MG OF BENADRYL, AND RESPONDED WELL TO THIS. WILL CONTINUE TO MONITOR UNTIL ONCOMING NURSE ARRIVES.
[2022-08-04 19:01] LABS: Albumin, Blood 1.9 g/dL (3.4-5.0); Anion Gap 9 mmol/L (6-16); Blood Urea Nitrogen 81 mg/dL (8-24); Bun/Creatinine Ratio 39.7 (12.0-20.0); CO2, Blood 22 mmol/L (21-32); Calcium, Blood 6.1 mg/dL (8.5-10.1); Chloride, Blood 105 mmol/L (98-108); Creatinine, Blood 2.04 mg/dL (0.40-1.00); Glomerular Filtration Rate 25 (60-); Glucose, Blood 106 mg/dL (70-99); Phosphorus, Blood 5.5 mg/dL (2.5-4.9); Potassium, Blood 4.6 mmol/L (3.5-5.5); Sodium, Blood 136 mmol/L (136-145)
[2022-08-04 19:08] LABS: Vancomycin, Random 12.6 ug/mL
--- NOTE | 2022-08-04 19:15 | NUR ---
ASSUMPTION OF CARE PT IS RECEIVING LEVOPHED 6MCG/MIN. VASOPRESSIN ON SB SINCE DAYSHIFT. SHE IS A&OX4, PARTICIPATES IN CONVERSATION AND CARE. SHE IS ON 4L NC WITH SPO2 >93%. LUNGS ARE COARSE THROUGHOUT, CRACKLES IN BASES. SHE HAS A MOIST COUGH. ENCOURAGED DEEP BREATHING AND STRONG COUGH. SHE DENIES SOB. AFIB ON MONITOR WITH RATE 90S-110S. STRONG RADIAL PULSES, DOPPLER PEDAL PULSES. BUE AND BLE EDEMATOUS. PT DENIES CP. BEDSIDE SWALLOW DONE AND PT TOLERATED WELL. GIVEN PO MEDS WITHOUT DIFFICULTY. BOWEL TONES HYPOACTIVE. PT REPORTS DECREASED APPETITE. BROWN PATENT AND DRAINING CLEAR/YELLOW URINE TO GRAVITY. ART LINE TO R AXILLA. ZEROED AND MAINTAINED PROPER POSITIONING. PICC TO CAROLANN. PT REPORTS PAIN WITH NORBERT POWERGLIDE, POWERGLIDE DOES NOT DRAW BACK AND REMOVED AT THIS TIME. SKIN REMAINS ECCHYMOTIC THROUGHOUT. PT EXPRESSES CONCERN REGARDING HOME LIVING SITUATION. PT STS SHE DOES NOT WANT TO LEAVE HER HOME BUT EXPRESSES NEEDING ADDITIONAL RESOURCES. SEE SHIFT ASSESSMENT.
--- NOTE | 2022-08-04 20:30 | NUR ---
UPDATE PT CONTINUES TO HAVE MOIST COUGH. ENCOURAGED DEEP BREATHING AND STRONG COUGH BUT PT UNABLE TO. RT AT BEDSIDE FOR PRN TREATMENT. DR CARMONA CALLED AND ORDER RECEIVED FOR CPAP. PT TOLERATED FOR APPROX 30 MIN AND REQUESTED TO HAVE IT TAKEN OFF. EXPLAINED REASONING FOR USE AND ENCOURAGED TO TRY AGAIN LATER TONIGHT. PT ACKNOWLEDGES UNDERSTANDING AND PLACED BACK ON 4L NC.
[2022-08-05 04:12] LABS: BASOPHILS ABSOLUTE AUTO 0.02 K/mm3 (0.00-0.23); BASOPHILS PERCENT AUTO 0 % (0-2); EOSINOPHILS ABSOLUTE AUTO 0.02 K/mm3 (0.00-0.68); EOSINOPHILS PERCENT AUTO 0 % (0-6); Hematocrit 24.6 % (33.0-51.0); IMMATURE GRAN ABSOLUTE AUTO 0.41 K/mm3 (0.00-0.10); IMMATURE GRAN PERCENT AUTO 4 % (0-1); LYMPHOCYTES ABSOLUTE AUTO 0.42 K/mm3 (0.84-5.20); LYMPHOCYTES PERCENT AUTO 4 % (21-46); MONOCYTES ABSOLUTE AUTO 0.85 K/mm3 (0.16-1.47); MONOCYTES PERCENT AUTO 7 % (4-13); Mean Corpuscular HGB 30.9 pg (26.0-34.0); Mean Corpuscular HGB Conc 32.5 g/dL (31.5-36.5); Mean Platelet Volume 9.7 fL (9.1-12.4); NEUTROPHILS ABSOLUTE AUTO 9.76 K/mm3 (1.96-9.15); NEUTROPHILS PERCENT AUTO 85 % (41-73); Platelet Count 309 K/mm3 (150-400); RDW Coefficient Variation 17.7 % (11.7-14.2); Red Blood Cell Count 2.59 M/mm3 (3.80-5.20); White Blood Cell Count 11.48 K/mm3 (4.00-11.30)
[2022-08-05 04:17] LABS: Mean Corpuscular Volume 95 fL (80-100)
[2022-08-05 04:33] LABS: Magnesium, Blood 1.8 mg/dL (1.6-2.4)
[2022-08-05 04:36] LABS: Albumin, Blood 1.8 g/dL (3.4-5.0); Anion Gap 8 mmol/L (6-16); Blood Urea Nitrogen 80 mg/dL (8-24); Bun/Creatinine Ratio 38.3 (12.0-20.0); CO2, Blood 24 mmol/L (21-32); Calcium, Blood 5.6 mg/dL (8.5-10.1); Chloride, Blood 104 mmol/L (98-108); Creatinine, Blood 2.09 mg/dL (0.40-1.00); Glomerular Filtration Rate 24 (60-); Glucose, Blood 135 mg/dL (70-99); Phosphorus, Blood 5.3 mg/dL (2.5-4.9); Potassium, Blood 4.5 mmol/L (3.5-5.5); Sodium, Blood 136 mmol/L (136-145)
--- NOTE | 2022-08-05 05:36 | NUR ---
SHIFT SUMMARY PT RECEIVING LEVOPHED 6MCG/MIN. VASOPRESSIN ON SB SINCE 0500. PT SLEPT THROUGH MOST OF NIGHT. SHE REPORTS FEELING RESTED DESPITE HAVING NIGHTTMARES. SHE REMAINS A&OX4. OCCASIONAL DISCOMFORT THAT RESOLVES WITH REPOSITIONING. SINCE REMOVING CPAP, PT HAS REMAINED ON 4L NC. SPO2 >95%. SHE HAS BEEN TAKING SMALL SIPS OF WATER WITH ASSISTANCE. BOWEL TONES HYPOACTIVE, ABDOMEN SOFT. PT DENIES NAUSEA. PT CONVERTED FROM AFIB TO SINUS AND HAS REMAINS IN NSR WTIH RATE IN 70S. PT HYPOTENSIVE DURING SHIFT AND REQUIRED VASOPRESSIN AND LEVOPHED AT 15MCG/MIN TO MAINTAIN MAP >65. SINCE THEN MEDS HAVE BEEN TITRATED DOWN. SHE DENIES CP. BROWN PATENT AND DRAINING CLEAR/YELLOW URINE TO GRAVITY WITH SHIFT OUTPUT 950ML. ART LINE REMAINS IN R AXILLA. PICC LINE REMAINS IN CAROLANN. DR KHAN NOTIFIED OF AM LABS, ORDERS RECEIVED. PT'S DAUGHTERS TRAVELING FROM [place] FOR FAMILY MEETING TODAY. PT LOOKING FORWARD TO SEEING THEM. SHE CONTINUES TO EXPRESS CONCERN ABOUT NOT BEING ABLE TO LIVE AT HER HOME. WILL REPORT TO ONCOMING RN.
[2022-08-05 05:39] LABS: BAND PERCENT MAN 1 % (0-8); BASOPHILS PERCENT MAN 0 % (0-2); EOSINOPHILS PERCENT MAN 0 % (0-6); LYMPHOCYTES ABSOLUTE MAN 0.45 K/mm3 (0.84-5.20); LYMPHOCYTES PERCENT MAN 4 % (21-46); MONOCYTES ABSOLUTE MAN 0.45 K/mm3 (0.16-1.47); MONOCYTES PERCENT MAN 4 % (4-13); NEUTROPHILS ABSOLUTE MAN 10.56 K/mm3 (1.96-9.15); SEG NEUTROPHILS PERCENT MAN 91 % (41-73); TOTAL CELLS COUNTED 100
[2022-08-05 11:30] LABS: PCO2 Arterial 56.5 mmHg (35-45); pH Blood Arterial 7.21 (7.35-7.45)
--- NOTE | 2022-08-05 18:09 | NUR ---
SUMMARY PT RESTING IN BED. A/O X4. HAS PAIN WITH REPOSITIONING BUT HAS NOT REQUESTED PAIN MEDS TODAY. DID HAVE SOME NAUSEA THIS AFTERNOON AND DR. CABEZAS SAID TO GIVE BENADRYL, WHICH DID HELP. STILL ON LEVOPHED GTT. PRESSURES HAVE IMPROVED ESPECIALLY AFTER MIDODRINE DOSES. PT HAS POOR APPETITE BUT DOES TRY TO EAT. DAUGHTERS DOWN FROM [place] AND UPDATED BY DR. CABEZAS AND DR. RUSSO. NO ACUTE CHANGES THIS SHIFT.
--- NOTE | 2022-08-05 19:15 | NUR ---
ASSUMPTION OF CARE PT RESTING IN BED WITH EYES CLOSED. SHE AWAKENS TO VERBAL STIMULI AND PARTICIPATES IN CONVERSATION. SHE IS RECEIVING LEVOPHED 6MCG/MIN. PT C/O GENERALIZED PAIN, MEDICATED PER EMAR. LUNGS ARE COARSE WITH RHONCHI. SHE REMAINS ON 4L NC WITH SPO2 >93%. BROWN PATENT AND DRAINING TO GRAVITY. SEE SHIFT ASSESSMENT.
[2022-08-05 23:04] LABS: Vancomycin, Random 18.5 ug/mL
--- NOTE | 2022-08-05 23:49 | NUR ---
HYPOTENSION LEVOPHED TITRATED TO 30MCG/MIN AND VASOPRESSIN INFUSING. PT REMAINS HYPOTENSIVE WITH MAP 47-51. PT REMAINS A&OX4 ALTHOUGH FEELS "DROWSY". DENIES LIGHTHEADEDNESS, CP AND OTHER SYMPTOMS. DR CABEZAS NOTIFIED, ORDER RECEIVED TO START EPINEPHRINE. DAUGHTER LEVIN NOTIFIED OF NEED FOR ADDITIONAL MEDICATION.
[2022-08-06 05:39] LABS: BASOPHILS ABSOLUTE AUTO 0.01 K/mm3 (0.00-0.23); BASOPHILS PERCENT AUTO 0 % (0-2); EOSINOPHILS ABSOLUTE AUTO 0.05 K/mm3 (0.00-0.68); EOSINOPHILS PERCENT AUTO 1 % (0-6); Hematocrit 25.8 % (33.0-51.0); Hemoglobin 8.6 g/dL (11.5-16.0); IMMATURE GRAN ABSOLUTE AUTO 0.36 K/mm3 (0.00-0.10); IMMATURE GRAN PERCENT AUTO 4 % (0-1); LYMPHOCYTES ABSOLUTE AUTO 0.54 K/mm3 (0.84-5.20); LYMPHOCYTES PERCENT AUTO 6 % (21-46); MONOCYTES PERCENT AUTO 6 % (4-13); Mean Corpuscular HGB 31.3 pg (26.0-34.0); Mean Corpuscular HGB Conc 33.3 g/dL (31.5-36.5); Mean Corpuscular Volume 94 fL (80-100); Mean Platelet Volume 9.7 fL (9.1-12.4); NEUTROPHILS ABSOLUTE AUTO 7.99 K/mm3 (1.96-9.15); NEUTROPHILS PERCENT AUTO 84 % (41-73); Platelet Count 357 K/mm3 (150-400); RDW Coefficient Variation 17.7 % (11.7-14.2); RDW Standard Deviation 61.4 fL (35.1-46.3); Red Blood Cell Count 2.75 M/mm3 (3.80-5.20); White Blood Cell Count 9.55 K/mm3 (4.00-11.30)
--- NOTE | 2022-08-06 05:41 | NUR ---
SHIFT SUMMARY PT RECEIVING LEVOPHED 10MCG/MIN TO MAINTAIN MAP >65. PT BECAME HYPOTENSIVE THIS SHIFT WITH SYSTOLIC IN 60S. VASOPRESSIN WAS RESTARTED. DR CABEZAS NOTIFIED AND EPINEPHRINE WAS STARTED. PT REPORTED FEELING "TIRED" BUT OTHERWISE STATED SHE FELT THE SAME SHE HAD BEFORE. NOW VASOPRESSIN AND EPINEPHRINE ARE ON STANDBY. SHE REMAINS A&OX4, PARTICIPATES IN CONVERSATION AND ASSISTS WITH CARE. SHE IS ON 4L NC WITH SPO2 >92%. SHE CONTINUES TO HAVE WEAK, MOIST COUGH. CONTINUING TO ENCOURAGE DEEP BREATHING AND STRONG COUGH. PT WORE CPAP FOR APPROX 2.5HRS BUT THEN MASK WAS TAKEN OFF DUE TO INABILITY TO TOLERATE MASK. LUNGS ARE COARSE WITH RHONCHI, CRACKLES IN BASES. BOWEL TONES HYPOACTIVE. PT REPORTS DECREASED APPETITE. PROVIDED ENSURE AND ENCOURAGED TO DRINK. BROWN PATENT AND DRAINING TO GRAVITY WITH SHIFT OUTPUT 1050ML. PT EXPRESSES CONCERN ABOUT DISCHARGE PLANNING AND DOES NOT WANT TO GO BACK TO [facility]. WILL REPORT TO ONCOMING RN.
[2022-08-06 05:57] LABS: Anion Gap 8 mmol/L (6-16); Blood Urea Nitrogen 80 mg/dL (8-24); Bun/Creatinine Ratio 37.6 (12.0-20.0); CO2, Blood 29 mmol/L (21-32); Chloride, Blood 101 mmol/L (98-108); Creatinine, Blood 2.13 mg/dL (0.40-1.00); Glomerular Filtration Rate 24 (60-); Glucose, Blood 117 mg/dL (70-99); Phosphorus, Blood 4.9 mg/dL (2.5-4.9); Potassium, Blood 3.8 mmol/L (3.5-5.5); Sodium, Blood 138 mmol/L (136-145); Vancomycin, Random 18.6 ug/mL
--- NOTE | 2022-08-06 18:13 | NUR ---
SUMMARY PT A/O X4 ALL DAY. HAS SOME NAUSEA AT TIMES. BENADRYL AND ZOFRAN GIVEN. HAS POOR APPETITE BUT IS TRYING TO EAT A LITTLE. OFF THE LEVOPHED FOR A FEW HOURS NOW. MIDODRINE WAS INCREASED TODAY. GOT PT UP TO CHAIR FOR LUNCH WITH GAIT BELT AND 1-2 PERSON ASSIST. PT ABLE TO SLOWLY STAND AND PIVOT. NO DROP IN SPO2 WITH MOVEMENT. TITRATED TO 2L NC THIS AM WHICH IS BASELINE FOR PT. WAS EVALUATED BY PT TODAY. DAUGHTERS HERE AND WERE UPDATED BY 'S, THEY ARE GOING BACK TO [place]. NO OTHER ACUTE CHANGES THIS SHIFT.
--- NOTE | 2022-08-06 19:15 | NUR ---
ASSUMPTION OF CARE PT RESTING IN BED WITH EYES CLOSED. WAKENS TO VERBAL STIMULI. SHE IS A&OX4. SHE IS ON 2L NC WITH SPO2 >93%. LUNGS CLEAR AND DIMINISHED THROUGHOUT. PT C/O NAUSEA. MEDICATED PER EMAR. LEVOPHED HAS BEEN ON STANDBY SINCE DAYSHIFT. ART LINE ZEROED, MAP >65. BROWN PATENT AND DRAINING TO GRAVITY. SEE SHIFT ASSESSMENT.
[2022-08-07 05:18] LABS: Hematocrit 24.9 % (33.0-51.0); Hemoglobin 8.2 g/dL (11.5-16.0); Mean Corpuscular HGB 30.8 pg (26.0-34.0); Mean Corpuscular HGB Conc 32.9 g/dL (31.5-36.5); Mean Corpuscular Volume 94 fL (80-100); Mean Platelet Volume 9.7 fL (9.1-12.4); Platelet Count 330 K/mm3 (150-400); RDW Coefficient Variation 17.1 % (11.7-14.2); Red Blood Cell Count 2.66 M/mm3 (3.80-5.20); White Blood Cell Count 7.62 K/mm3 (4.00-11.30)
[2022-08-07 05:31] LABS: Albumin, Blood 1.9 g/dL (3.4-5.0); Anion Gap 8 mmol/L (6-16); Blood Urea Nitrogen 80 mg/dL (8-24); Bun/Creatinine Ratio 34.8 (12.0-20.0); CO2, Blood 30 mmol/L (21-32); Calcium, Blood 7.3 mg/dL (8.5-10.1); Chloride, Blood 100 mmol/L (98-108); Glomerular Filtration Rate 22 (60-); Glucose, Blood 68 mg/dL (70-99); Magnesium, Blood 1.7 mg/dL (1.6-2.4); Phosphorus, Blood 4.8 mg/dL (2.5-4.9); Potassium, Blood 3.4 mmol/L (3.5-5.5); Sodium, Blood 138 mmol/L (136-145); Vancomycin, Random 17.2 ug/mL
--- NOTE | 2022-08-07 05:47 | NUR ---
SHIFT SUMMARY PT SLEPT THROUGH MOST OF NIGHT. SHE WAKENS TO VERBAL STIMULI, REMAINS A&OX4. SHE IS ON 2L NC WITH SPO2 >93%. LUNGS HAVE BEEN CLEAR AND DIMINISHED. OCCASIONAL RHONCHI. PT HAS BEEN IN AFIB AND NSR DURING SHIFT. RATE 70S-80S. LEVOPHED WAS ON FOR A SHORT PERIOD TO MAINTAIN MAP >65 BUT IS NOW ON STANDBY. PT CONTINUES TO HAVE DECREASED APPETITE. BOWEL TONES HYPOACTIVE. BROWN PATENT AND DRAINING CLEAR/YELLOW URINE TO GRAVITY WITH SHIFT OUTPUT OF 1150ML. ART LINE REMAINS IN R AXILLA. PICC REMAINS IN CAROLANN. DR KHAN NOTIFIED OF AM LABS. ORDERS RECEIVED. REPEAT POTASSIUM AT 1200, CALL WITH RESULTS BY 1300.
--- NOTE | 2022-08-07 10:29 | NUR ---
ASSUMED CARE NOTE: ASSUMED CARE OF PT AT 0700, PT IS ALERT AND ORIENTED X 4, ABLE TO COMMUNICATE NEEDS. PT ABLE TO RECALL RECENT AND REMOTE EVENTS. PT DENIES ANY PAIN AT THIS TIME. PT REMAINS ON 2L OF O2 VIA NC, TO MAINTAIN SPO2 ABOVE 90% PT HAS WEAK MOIST COUGH, NON-PRODUCTIVE, LUNG SOUNDS DIMINISHED T/O. PT CONTINUES TO BE ON LEVOPHED, AT 0700 SHE WAS ON 6MCG/MIN, HAS SINCE BEEN TITRATED DOWN TO 2MCG/MIN TO MAINTAIN MAP ABOVE 65. PT CONTINUES TO KEEPS GOING IN AND OUT OF AFIB, CURRENTLY IN AFIB WITH HR BETWEEN 60-70'S. PT DENIES ANY DIZZINESS/CP/SOB. +3 EDEMA TO RLE, +2 EDEMA TO LLE, DOPPLER USED FOR PEDAL PULSES. HYPOACTIVE BOWEL TONES IN ALL QUADRANTS, PT HAS VERY POOR APPETITE, DENIES NAUSEA AT THIS TIME. BROWN PATENT, DRAINING TO GRAVITY. BED AT LOWEST LEVEL, CALL LIGHT WITHIN REACH.
--- NOTE | 2022-08-07 11:59 | NUR ---
update: Spoke to , orders to traget MAP above 60. Levophed on stand-by. Attempted to take blood pressure using left arm, 20 point diffierence from art-line. Pt stated " My doctor always told me to take the blood pressure on my right side, I do not remember why" Art-line Zeroed, BP cuff on right leg.
--- NOTE | 2022-08-07 17:56 | NUR ---
SHIFT SUMMARY: PT CONTINUES TO BE ALERT AND ORIENTED X4, PT C/O PAIN TO LEFT HIP, 03/05 , MEDICATION GIVEN PER JAN. PT CONTINUES TO BE IN SR WITH HR IN THE 70-80'S. PT WILL OCCASSIONALLY GO INTO AFIB WITH HR BETWEEN 57-60'S. A-LINE IN PLACE TO RIGHT AXILLARY, SITE IS C/D/I. PT HAS BEEN ON/OFF LEVOPHED T/O SHIFT, TO MAINTAIN MAP ABOVE 60. BLOOD PRESSURE CUFF APPLIED TO RIGHT WRIST PER , BP CORELATED WITH A-LINE. POSSIBLE DC OF A-LINE 08/08. NO BLOOD PRESSURES TO LEFT SIDE DUE TO PT HAVING SEVERE LEFT SUBCLAVIAN ARTERY STENOSIS. PT CONTINUES TO BE ON 2L OF O2 VIA NC TO MAINTAIN SPO2 ABOVE 90%, RONCHI IN BILATERAL UPPER LOBES NOTED. PT HAS WEAK NON-PRODUCTIVE COUGH. CLINAMIX STARTED TODAY. NO BM THIS SHIFT. PT C/O NAUSEA THIS SHIFT, ZOFRAN GIVEN PER JAN. BROWN PATENT DRAINING, CLEAR YELLOW URINE, 750ML OUTPUT. WILL CONTINUE TO MONITOR PT T/O SHIFT.
--- NOTE | 2022-08-07 18:46 | NUR ---
Met with patient to review her symptoms. She is mildy dyspnic and nauseaed she states she feels slightly constipated but also feel not much stool there. She states she feels bloated. Pt looks to be gulping air and is being diurised. She has minimal appetite and is struggling with food tolerance. She has been struggling with sleep. We had a deep discussion about her life and discussed potential plans. We discussed her fears of being in the halfway. She is fearfull that she will need help and no one will come and she will / She has been pondering how sick she is and struggling to take action on her living situation. We discussed selling her home and getting placed in assisted living near her daughters so she can be with family. We discussed keeping the home and renting it our and living with her daughters so they could inherit the home. We discussed hospice care and whe that offers. She needs frequent medical care and appointments and that is becoming a burden. We reviewed suffering and that hospice is no longer placed at the last minute. We discussed quality of life and some strategies of po intake and rest. She was interest in an ensure milkshake and jello. We discussed having some control of her life would be good. She has a love of god and checo but stuggles with having not been to [facility] in so long. Will send chaplian to see patient. Review of symptoms and medications with nursing. Called her daughter and reviewed our conversation. Her daughter was greatful they have been trying to get her to disuss a plan.
--- NOTE | 2022-08-07 20:37 | NUR ---
ASSESSMENT/ASSUMPTION OF CARE: ASSUMED CARE OF PT AT 1900. PT IS ALERT AND ORIENTED X 4, AND IS FOLLOWING COMMANDS. PT IS SITTING UP IN BED WATCHING TV; USING CALL LIGHT APPROPRIATE. PT HAS COARSE LUNG SOUNDS AND DIMINISHED IN THE BASES BILATERALLY; PT ON 2L, HUMIDIFIED O2 VIA NC, RR 14-16, AND O2 LEVELS MAINTAINING 96<. PT IS SR WITH HR 64. BP TAKEN ON R. WRIST READING 109/38; A-LINE READING 129/58. A-LINE SITE WNL AND ZEROED AT THIS TIME. PT HAS NO C/O OF SOB OR CHEST PAIN AT THIS TIME. PT HAS HYPOACTIVE BS IN ALL FOUR QUADRANTS; PT COMPLAINED OF NAUSEA AT THIS TIME AND WAS MEDICATED WITH ZOFRAN PER EMAR. PT EXTREMIITES WARM THROUGHOUT WITH PPP IN THE BUE AND DOPPLER WITH BLE; CAP REFIL REMAINS < 3 SECONDS. PT HAS AN INDWELLING BROWN THAT IS PATENT AND DRAINING TO GRAVITY; URINE IS CLEAR AND YELLOW. PT REPOSITIONED AND TOLERATED WELL. PT TAKES PO MEDS WELL. TEMP AT 97.0. PT HAS A CAROLANN PICC LINE THAT FLUSHES AND DRAWS EASILY; CLINIMIX INFUSING AT 50 MLS/HR. PT COACHED ON DEEP BREATHING AND USE OF FLUTTER VALVE; PT PARTICIPATED IN THERAPIES AND TOLERATED WELL. WILL CONTINUE TO MONITOR THROUGHOUT THE NIGHT. CALL LIGHT IS IN REACH.
[2022-08-08 05:09] LABS: Hematocrit 26.1 % (33.0-51.0); Hemoglobin 8.4 g/dL (11.5-16.0); Mean Corpuscular HGB 30.4 pg (26.0-34.0); Mean Corpuscular HGB Conc 32.2 g/dL (31.5-36.5); Mean Corpuscular Volume 95 fL (80-100); Mean Platelet Volume 9.5 fL (9.1-12.4); NRBC ABSOLUTE 0.03 K/mm3 (0.00-0.02); NRBC Auto 0.3 /100 WBC (0.0-0.2); Platelet Count 353 K/mm3 (150-400); RDW Coefficient Variation 16.5 % (11.7-14.2); RDW Standard Deviation 57.3 fL (35.1-46.3); Red Blood Cell Count 2.76 M/mm3 (3.80-5.20); White Blood Cell Count 8.95 K/mm3 (4.00-11.30)
[2022-08-08 05:41] LABS: Albumin, Blood 1.8 g/dL (3.4-5.0); Anion Gap 4 mmol/L (6-16); Blood Urea Nitrogen 79 mg/dL (8-24); Bun/Creatinine Ratio 33.3 (12.0-20.0); CO2, Blood 34 mmol/L (21-32); Calcium, Blood 7.7 mg/dL (8.5-10.1); Chloride, Blood 97 mmol/L (98-108); Creatinine, Blood 2.37 mg/dL (0.40-1.00); Glomerular Filtration Rate 21 (60-); Glucose, Blood 93 mg/dL (70-99); Magnesium, Blood 1.7 mg/dL (1.6-2.4); Potassium, Blood 3.7 mmol/L (3.5-5.5); Sodium, Blood 135 mmol/L (136-145)
[2022-08-08 05:45] LABS: BAND PERCENT MAN 3 % (0-8); BASOPHILS PERCENT MAN 0 % (0-2); EOSINOPHILS ABSOLUTE MAN 0.08 K/mm3 (0.00-0.68); EOSINOPHILS PERCENT MAN 1 % (0-6); LYMPHOCYTES ABSOLUTE MAN 0.62 K/mm3 (0.84-5.20); LYMPHOCYTES PERCENT MAN 7 % (21-46); METAMYELOCYTE ABSOLUTE MAN 0.08 K/mm3 (0.00-0.00); METAMYELOCYTE PERCENT MAN 1 % (0-0); MONOCYTES ABSOLUTE MAN 0.26 K/mm3 (0.16-1.47); MONOCYTES PERCENT MAN 3 % (4-13); MYELOCYTE ABSOLUTE MAN 0.08 K/mm3 (0.00-0.00); MYELOCYTE PERCENT MAN 1 % (0-0); NEUTROPHILS ABSOLUTE MAN 7.78 K/mm3 (1.96-9.15); SEG NEUTROPHILS PERCENT MAN 84 % (41-73); TOTAL CELLS COUNTED 100
--- NOTE | 2022-08-08 05:46 | NUR ---
DR KHAN NOTIFIED REGARDING LABS, ORDERS OBTAINED.
--- NOTE | 2022-08-08 06:04 | NUR ---
SHIFT SUMMARY: PT REMAINS A&0 X 4. PT C/O OF PAIN, 6/10 IN LEFT HIP. MEDICATED WITH PRN TYLENOL WITH GOOD RESULTS. LEVOPHED OFF THROUGHOUT THE NIGHT; MAP REMAINS 60< VIA A-LINE. MEPILEX TO COCCYX C/D/I. PT TURNED PRN TO KEEP OFF COCCYX. DR KHAN UPDATED ABOUT AM LAB RESULTS; NEW ORDERS FOR LASIX 80 MG QDAY. REPORT TO ONCOMING NURSE.
--- NOTE | 2022-08-08 10:58 | NUR ---
ASSUMED CARE NOTE: ASSUMED CARE OF PT AT 0700. PT IS ALERT AND ORIENTED X4, ABLE TO COMMUNICATE NEEDS. PT STATES SHE HAS 5/10 PAIN TO LEFT HIPS, DECLINES PAIN MEDICATIONS AT THIS TIME. PT DENIES FELLING DIZZY/LIGHT HEADED. PT ON 2L OF HUMITIFIED AIR VIA NC WITH SPO2 ABOVE 90% NO RESP DISTRESS NOTED AT THIS TIME. PT IN SR WITH HR IN THE 70'S. A-LINE TURNED OFF, PLAN TO REMOVE TODAY PER . ORDERS TO MAINTAIN MAP <55 GIVEN. PT DECLINED BREAKFAST THIS AM. PT GIVEN NEPHRO SUPPLEMENT WITH ICECREAM. PT GIVEN ZOFRAN FOR NAUSEA. HYPOACTIVE BOWEL TONES TO ALL QUADRANTS. BROWN PATENT, DRAINING CLEAR YELLOW URINE TO GRAVITY. OCCUPATIONAL THERAPY EVALUATED PATIENT. PT, SHE IS CURRENTLY IN THE CHAIR. SPOKE WITH PT REGARDING HER CURRENT HEALTH STATUS AND GOALS OF CARE. POSSIBLE TRANSITION TO HOSPICE CARE. PT DOWNGRADED TO MEDICAL STATUS, WILL CONTINUE TO MONITOR PT T/O SHIFT.
--- NOTE | 2022-08-08 16:11 | NUR ---
REPORT GIVEN TO RAD MEDICAL FLOOR RN. RELIQUISHED CARE AT 161
[2022-08-09 04:39] LABS: Hemoglobin 8.7 g/dL (11.5-16.0)
--- NOTE | 2022-08-09 04:47 | NUR ---
SHIFT SUMMARY A/OX4, PLEASANT AND COOPERATIVE WITH CARE. 1P ASSIST WITH FWW AND GB TO BSC. CURRENTLY ON BASELINE 2L O2 VIA NC. PICC TO RUA. BROWN PATENT AND DRAINING TO GRAVITY. SOFT BP'S NOTED, VSS NO ACUTE CHANGES AT THIS TIME. BED IN LOWEST POSITION WITH CALL LIGHT IN REACH. WILL CONTINUE TO MONITOR AND REPORT TO ONCOMING RN.
[2022-08-09 05:01] LABS: Alanine Aminotransfer (ALT/SGP 24 U/L (12-78); Albumin, Blood 1.9 g/dL (3.4-5.0); Albumin/Globulin Ratio 0.6 (0.8-1.8); Alk Phos 77 U/L (50-136); Anion Gap 6 mmol/L (6-16); Aspartate Aminotrans (AST/SGOT 29 U/L (12-37); Bilirubin, Total 0.2 mg/dL (0.1-1.0); Blood Urea Nitrogen 85 mg/dL (8-24); Bun/Creatinine Ratio 35.6 (12.0-20.0); CO2, Blood 35 mmol/L (21-32); Calcium, Blood 8.2 mg/dL (8.5-10.1); Chloride, Blood 92 mmol/L (98-108); Creatinine, Blood 2.39 mg/dL (0.40-1.00); Globulin, Blood 3.4 g/dL (2.2-4.0); Glomerular Filtration Rate 21 (60-); Glucose, Blood 101 mg/dL (70-99); Magnesium, Blood 2.2 mg/dL (1.6-2.4); Phosphorus, Blood 5.4 mg/dL (2.5-4.9); Potassium, Blood 3.5 mmol/L (3.5-5.5); Sodium, Blood 133 mmol/L (136-145); Total Protein, Blood 5.3 g/dL (6.4-8.2); Triglycerides 217 mg/dL (30-160)
--- NOTE | 2022-08-09 12:00 | NUR ---
HYPOTENSION Soft bp's this am at SBP 91. Obtained BP for midodrine administration, it was 76/52. Midodrine given, notified Dr. Mallory. Will recheck and monitor.
--- NOTE | 2022-08-09 17:33 | NUR ---
Spoke to pt's daughter Shaneka today; she states she realizes the pt is likely at the end of her life. She reports her mom told her today she can't stay awake for the past couple of days. She is planning to come down this weekend to see her, and is working on placement. She states she understands the increased sleep likely means pt is getting closer to transitioning, and she also verbalizes understanding that pt likely only has days to weeks if the trajectory continues. Plan to assess pt again tomorrow, and will check in with Dr. Mallory and/or Air Tube Releaser afterwards.
--- NOTE | 2022-08-09 18:13 | NUR ---
Shift Summary A/Ox4, pleasant/cooperative. Up with 1p assist/FWW/gait belt to bathroom/bedside commode. Had bm this morning. Dyspneic with exertion. Medicated x 1 for mild L hip pain per EMAR with good effect. Clinimix/Fat lipids infusing, patient tolerating PO diet well. Patient has crackles throughout lungs upon auscultation with lower extremity swelling. Answering questions appropriately.
--- NOTE | 2022-08-10 04:24 | NUR ---
SHIFT SUMMARY: PT IS ALERT AND ORIENTED. PT IS CALM AND COOPERATIVE WITH CARE. PT CALLS APPROPRIATELY. PT IS A ONE PERSON ASSIST WITH FWW, NOT OUT OF BED OVERNIGHT. PT REPORTS L. HIP PAIN, GAVE PRN TYLENOL. PT DENIES NAUSEA, VOMITING AND SOB. PT ON 2 L O2 KEEPING SATS > 90%. BROWN PATENT AND DRAINING YELLOW URINE. FLUIDS RUNNING ORDERED. NO ACUTE CHANGES OR COMPLICATIONS. BED IN LOW POSITION, CALL LIGHT WITHIN REACH. WILL REPORT TO DAY NURSE.
[2022-08-10 04:45] LABS: Hematocrit 25.9 % (33.0-51.0); Hemoglobin 8.4 g/dL (11.5-16.0)
[2022-08-10 05:01] LABS: Albumin, Blood 1.8 g/dL (3.4-5.0); Anion Gap 7 mmol/L (6-16); Blood Urea Nitrogen 94 mg/dL (8-24); Bun/Creatinine Ratio 40.7 (12.0-20.0); CO2, Blood 36 mmol/L (21-32); Calcium, Blood 8.5 mg/dL (8.5-10.1); Chloride, Blood 89 mmol/L (98-108); Creatinine, Blood 2.31 mg/dL (0.40-1.00); Glomerular Filtration Rate 22 (60-); Glucose, Blood 97 mg/dL (70-99); Magnesium, Blood 2.2 mg/dL (1.6-2.4); Phosphorus, Blood 5.7 mg/dL (2.5-4.9); Potassium, Blood 3.6 mmol/L (3.5-5.5); Sodium, Blood 132 mmol/L (136-145)
[2022-08-10 10:10] LABS: HBSAG SCREEN Negative (Negative); HCV AB <0.1 (0.0-0.9); HEP B CORE AB, TOT Negative (Negative)
--- NOTE | 2022-08-10 10:56 | NUR ---
RN NOTE MS HINES IS ALERT, ORIENTATED TO SELF, LOCATION AND DATE. NO PAIN AT REST, C/O LEFT HIP DISCOMFORT WHEN MOVING. UP TO BEDSIDE COMMODE TWICE THIS AM WITH 1 PERSON ASSIST AND GAIT BELT. LOOSE STOOLS. BROWN CATHETER IN PLACE. MOIST NON-PRODUCTIVE COUGH. BED LOW, CALL LIGHT IN REACH.
--- NOTE | 2022-08-10 16:28 | NUR ---
SHIFT SUMMARY MS HINES HAS HAD DIARRHEA STOOLS TODAY, NONE SINCE TAKING IMMODIUM. LEFT HIP PAIN 5/10 HELPED WITH TYLENOL. BROWN CATHETER IN PLACE DRAINING CLEAR YELLOW URINE. UP TO BEDSIDE COMMODE WITH ONE PERSON ASSIST WITH GAIT BELT. DOES GET SOMEWHAT SOB WITH ACTIVITY. MOIST NON PRODUCTIVE COUGH. WORKED WITH PT TODAY. NON PITTING EDEMA BLE. MEPILEX CHANGED TO REDDENED SACRAL AREA, ABRASION TO LEFT BUTTOCK. DRESSING CHANGED TO LEFT ARM SKIN TEAR, NEW NON ADHESIVE DRESSING AND STOCKING IN PLACE. SKIN IS FRAIL AND BRUISED. REPOSITIONED WITH PILLOWS Q2HRS AND PRN. BED LOW, CALL LIGHT IN REACH.
[2022-08-11 05:05] LABS: Hematocrit 24.8 % (33.0-51.0); Hemoglobin 8.2 g/dL (11.5-16.0)
[2022-08-11 05:36] LABS: Albumin, Blood 1.9 g/dL (3.4-5.0); Anion Gap 5 mmol/L (6-16); Blood Urea Nitrogen 94 mg/dL (8-24); CO2, Blood 39 mmol/L (21-32); Calcium, Blood 8.9 mg/dL (8.5-10.1); Chloride, Blood 88 mmol/L (98-108); Glomerular Filtration Rate 26 (60-); Glucose, Blood 85 mg/dL (70-99); Magnesium, Blood 2.1 mg/dL (1.6-2.4); Phosphorus, Blood 4.8 mg/dL (2.5-4.9); Potassium, Blood 3.4 mmol/L (3.5-5.5); Sodium, Blood 132 mmol/L (136-145)
--- NOTE | 2022-08-11 06:00 | NUR ---
SHIFT SUMMARY NO ACUTE CHANGES THIS SHIFT. AXO. BP STABLE. ON BASELINE 2LNC. NO DIARRHEA THIS SHIFT. PICC PATENT. PT BEING REPOSITIONED AND OTHERWISE, PT HAS RESTED T/O SHIFT.
--- NOTE | 2022-08-11 14:58 | NUR ---
DR SIEGEL ROUNDED ON PATIENT IMMODIUM D/C, NEED A STOOL SAMPLE. PATIENT IN NO DISTRESS, WORKED WITH PT/OT TODAY, PLEASANT TO CARE, CALL LIGHT WITH IN REACH
--- NOTE | 2022-08-11 18:18 | NUR ---
MAKES NEEDS KNOWN, ALERT AND ORIENTED X4, PLEASANT TO CARE. FRIEND AND BROTHER VISITED TODAY. DENIES PAIN, SBP 100-110S, MIDODRINE SCHEDULED GIVEN, LS DIMISHED, WEAK COUGH, VERY FRAGILE SKIN, VERY EMACIATED. WORD WITH PT/OT. NEED A STOOL SAMPLE AND AFTER MIDNIGHT A COVID TEST FOR POSSIBLE DISCHARGE TO [facility]. WILL RELAY TO PM RN, HEENA
[2022-08-12 01:57] LABS: SARS-Cov-2 (COVID-19) PCR, MMC NEGATIVE (NEGATIVE)
[2022-08-12 05:59] LABS: Hematocrit 25.7 % (33.0-51.0); Hemoglobin 8.5 g/dL (11.5-16.0); Mean Corpuscular HGB 31.4 pg (26.0-34.0); Mean Corpuscular HGB Conc 33.1 g/dL (31.5-36.5); Mean Corpuscular Volume 95 fL (80-100); Platelet Count 361 K/mm3 (150-400); RDW Coefficient Variation 16.1 % (11.7-14.2); RDW Standard Deviation 55.2 fL (35.1-46.3); Red Blood Cell Count 2.71 M/mm3 (3.80-5.20); White Blood Cell Count 10.35 K/mm3 (4.00-11.30)
--- NOTE | 2022-08-12 06:05 | NUR ---
SHIFT SUMMARY - NO ACUTE CHANGES THROUGHOUT THIS SHIFT. PT VOICED CONCERN ABOUT GOING TO A SNF, SHE REALLY WOULD LIKE TO RETURN HOME. I REPORTED TO HER, POSSIBLY AFTER REHAB THAT WILL BE AN OPTION. PT ALSO REPORTS SHE HAS FAMILY SUPPORT, AND 2 DAUGHTERS FROM [place] INVOLVED WITH HER CARE - THEY REPORTED TO PT, THEY WOULD LIKE PT TO MOVE UP TO [place]. PT REPORTS WHEN SHE GETS UP WALKING, SHE "JUST DOESN'T FEEL GOOD" - WHICH SHE REPORTS HER CURRENT MAIN CONCERN. OTHERWISE, NO ACUTE CHANGES TONIGHT. FLUIDS AT BEDSIDE. CALL LIGHT WITHIN REACH. BED IN LOW POSITION. CLEAR YELLOW URINE OUT FROM PT'S BROWN. COVID NEGATIVE RESULTS. NO REPORT OF NAUSEA/DRY HEAVES. WILL CONTINUE TO MONITOR UNTIL AM SHIFT CHANGE.
[2022-08-12 06:24] LABS: BAND PERCENT MAN 1 % (0-8); BASOPHILS PERCENT MAN 0 % (0-2); EOSINOPHILS PERCENT MAN 2 % (0-6); LYMPHOCYTES % ATYPICAL MANUAL 2 % (0-0); LYMPHOCYTES ABSOLUTE MAN 0.82 K/mm3 (0.84-5.20); LYMPHOCYTES PERCENT MAN 6 % (21-46); METAMYELOCYTE PERCENT MAN 1 % (0-0); MONOCYTES ABSOLUTE MAN 0.72 K/mm3 (0.16-1.47); MONOCYTES PERCENT MAN 7 % (4-13); MYELOCYTE PERCENT MAN 1 % (0-0); NEUTROPHILS ABSOLUTE MAN 8.38 K/mm3 (1.96-9.15); SEG NEUTROPHILS PERCENT MAN 80 % (41-73); TOTAL CELLS COUNTED 100
[2022-08-12 06:25] LABS: Albumin/Globulin Ratio 0.5 (0.8-1.8); Bilirubin, Total 0.3 mg/dL (0.1-1.0); Bun/Creatinine Ratio 46.3 (12.0-20.0); C-REACTIVE PROTEIN, EXT RANGE 8.15 mg/dL (0.000-0.300); Calcium, Blood 8.2 mg/dL (8.5-10.1); Creatinine, Blood 2.05 mg/dL (0.40-1.00); Free Thyroxine 1.06 ng/dL (0.70-1.60); Globulin, Blood 3.9 g/dL (2.2-4.0); Magnesium, Blood 2.1 mg/dL (1.6-2.4); Phosphorus, Blood 4.8 mg/dL (2.5-4.9); Potassium, Blood 4.1 mmol/L (3.5-5.5); Thyroid Stimulating Hormone 2.82 uIU/mL (0.360-4.800); Total Protein, Blood 5.9 g/dL (6.4-8.2)
--- NOTE | 2022-08-12 11:01 | NUR ---
DR SANDOVAL ROUNDED, PATIENT TO BE DISCHARGED, BROWN CATHETER REMOVED-PATIENT TOLERATED WELL, PICC LINE REMOVED ON CAROLANN AND DRSG ON SKIN TEAR ON THE CAROLANN REDRESSED, PATIENT TOLERATED WITH EASE. WCTM
[2022-08-12] MEDS ORDERED: ENOX30I SC (16:39)
[2022-08-12] MEDS ORDERED: METHI10 PO (16:39)
[2022-08-12] MEDS ORDERED: FURO40 PO (16:39)
[2022-08-12] MEDS ORDERED: ONDA4ODT MM (16:40)
[2022-08-12] MEDS ORDERED: MIDO5 PO (16:40)
[2022-08-12] MEDS ORDERED: POTA10T PO (16:41)
[2022-08-12] MEDS ORDERED: SODBIC650 PO (16:41)
[2022-09-01] MEDS ORDERED: Aspir 8181 MG PO (03:28)
== END 2022-08-12 12:17 | DRG 871 ==
LOC: ER 18:04 → MEDS 21:34 → ICUE 21:34 → PCU 21:34 → ICUE 08-03 03:18 → MEDS 08-08 16:15
PROVIDERS: Emergency Medicine; Family Medicine; Hospitalist; Internal Medicine Critical Care Medicine; Internal Medicine Nephrology; ADMIT Internal Medicine
PROC: 03HY32Z Insertion of Monitoring Device into Upper Artery, Percutaneous Approach (ICD-10-PCS; principal; 2022-08-03)
PROC: 4A133B1 Monitoring of Arterial Pressure, Peripheral, Percutaneous Approach (ICD-10-PCS; 2022-08-03)
PROC: 4A133J1 Monitoring of Arterial Pulse, Peripheral, Percutaneous Approach (ICD-10-PCS; 2022-08-03)
PROC: 3E033XZ Introduction of Vasopressor into Peripheral Vein, Percutaneous Approach (ICD-10-PCS; 2022-08-03)
PROC: 3E03329 Introduction of Other Anti-infective into Peripheral Vein, Percutaneous Approach (ICD-10-PCS; 2022-08-03)
PROC: 06HY33Z Insertion of Infusion Device into Lower Vein, Percutaneous Approach (ICD-10-PCS; 2022-08-03)
DX: A41.9 Sepsis, unspecified organism (principal); J18.9 Pneumonia, unspecified organism; K55.059 Acute (reversible) ischemia of intestine, part and extent unspecified; R65.21 Severe sepsis with septic shock; N17.9 Acute kidney failure, unspecified; N18.4 Chronic kidney disease, stage 4 (severe); I13.0 Hypertensive heart and chronic kidney disease with heart failure and stage 1 through stage 4 chronic kidney disease, or unspecified chronic kidney disease; E87.0 Hyperosmolality and hypernatremia; E87.2 Acidosis; Z68.1 Body mass index [BMI] 19.9 or less, adult; E46 Unspecified protein-calorie malnutrition; Z20.822 Contact with and (suspected) exposure to COVID-19; Z66 Do not resuscitate; E87.5 Hyperkalemia; K74.60 Unspecified cirrhosis of liver; J44.9 Chronic obstructive pulmonary disease, unspecified; R19.7 Diarrhea, unspecified; K21.9 Gastro-esophageal reflux disease without esophagitis; K44.9 Diaphragmatic hernia without obstruction or gangrene; M81.0 Age-related osteoporosis without current pathological fracture; Z88.5 Allergy status to narcotic agent; Z88.1 Allergy status to other antibiotic agents; Z88.8 Allergy status to other drugs, medicaments and biological substances; I50.9 Heart failure, unspecified; D64.9 Anemia, unspecified; Z90.49 Acquired absence of other specified parts of digestive tract; Z98.890 Other specified postprocedural states; Z87.891 Personal history of nicotine dependence; Z79.82 Long term (current) use of aspirin; Z79.899 Other long term (current) drug therapy; I34.0 Nonrheumatic mitral (valve) insufficiency; E87.6 Hypokalemia; E88.09 Other disorders of plasma-protein metabolism, not elsewhere classified; E83.51 Hypocalcemia; Z99.81 Dependence on supplemental oxygen
CPT/HCPCS: 0241U; 36415; 36430; 36569; 36620; 51703; 71045; 71260; 74160; 76770; 80048; 80053; 80069; 80202; 82330; 82533; 82803; 82947; 83605; 83735; 83880; 84100; 84132; 84145; 84439; 84443; 84478; 84484; 85014; 85018; 85025; 85027; 85520; 85610; 85651; 86140; 86704; 86708; 86803; 86850; 86900; 86901; 86923; 87040; 87340; 93005; 93010; 93306; 93312; 93325; 94640; 94644; 94660; 94664; 94760; 94762; 96374; 96375; 97110; 97161; 97166; 97530; 97535; 99285-25; A9270; C1751; J0171; J0456; J0696; J0881; J1200; J1644; J1650; J1815; J1940; J2060; J2250; J2310; J2405; J2550; J2765; J3010; J3370; J3411; J3475; J3480; J7030; J7040; J7050; J7060; P9016; Q9967; U0004

== ENCOUNTER 2022-08-17 12:07 | Inpatient (IN) | payer MEDICARE, OTHER ==
[~2022-08-17] VITALS: Ht 157.5 cm; Wt 49.0 kg
[~2022-08-17 12:07] MED LIST changes: +ENOX30I SC; +FURO40 PO; +METHI10 PO; +MIDO5 PO; +ONDA4ODT MM; +POTA10T PO; +SODBIC650 PO
[2022-08-17] MEDS ORDERED: Feosol45 MG (13:24)
[2022-08-17] MEDS ORDERED: PROAIR DIGIHAL90 MCG INH (14:26)
[2022-08-17] MEDS ORDERED: TIOT18 INH (14:26)
[2022-08-17 14:41] LABS: BASOPHILS ABSOLUTE AUTO 0.04 K/mm3 (0.00-0.23); BASOPHILS PERCENT AUTO 1 % (0-2); EOSINOPHILS ABSOLUTE AUTO 0.11 K/mm3 (0.00-0.68); EOSINOPHILS PERCENT AUTO 2 % (0-6); Hematocrit 25.9 % (33.0-51.0); Hemoglobin 7.9 g/dL (11.5-16.0); IMMATURE GRAN ABSOLUTE AUTO 0.05 K/mm3 (0.00-0.10); IMMATURE GRAN PERCENT AUTO 1 % (0-1); LYMPHOCYTES ABSOLUTE AUTO 0.56 K/mm3 (0.84-5.20); LYMPHOCYTES PERCENT AUTO 8 % (21-46); MONOCYTES ABSOLUTE AUTO 0.46 K/mm3 (0.16-1.47); MONOCYTES PERCENT AUTO 7 % (4-13); Mean Corpuscular HGB Conc 30.5 g/dL (31.5-36.5); Mean Corpuscular Volume 99 fL (80-100); NEUTROPHILS ABSOLUTE AUTO 5.73 K/mm3 (1.96-9.15); NEUTROPHILS PERCENT AUTO 82 % (41-73); Platelet Count 393 K/mm3 (150-400); Red Blood Cell Count 2.63 M/mm3 (3.80-5.20); White Blood Cell Count 6.95 K/mm3 (4.00-11.30)
[2022-08-17 15:09] LABS: Albumin, Blood 2.2 g/dL (3.4-5.0); Albumin/Globulin Ratio 0.6 (0.8-1.8); Bilirubin, Total 0.3 mg/dL (0.1-1.0); Creatinine, Blood 3.81 mg/dL (0.40-1.00); Globulin, Blood 3.8 g/dL (2.2-4.0); Potassium, Blood 5.6 mmol/L (3.5-5.5)
--- NOTE | 2022-08-17 18:08 | NUR ---
REPORT NOTE REPORT WAS CALLED ON PT, BUT PT WILL NOT BE IN THE ROOM UNTIL DIALYSIS IS COMPLETE. REPORT RECIEVED FROM ED RN AND BOBBIN HANDLER. PT WILL RUN IN DIALYSIS FOR 1 HR [address] KHAN. AFTERWARDS PT WILL BE BROUGHT TO RM 160.
--- NOTE | 2022-08-17 19:41 | NUR ---
patient arrived to room 360 at 1930 for admission after dialysis. C/O RIGHT CLAVICULAR PAIN 5/10 THAT FEELS "LIKE SOMEONE IS PUSHING ". Full note to jero
--- NOTE | 2022-08-17 19:58 | NUR ---
patient with hx of C Diff in June she has been having diarrhea stools for the last four days. call placed hospitalist for GI Panel order.
[2022-08-18 05:11] LABS: Hematocrit 23.8 % (33.0-51.0); Hemoglobin 7.6 g/dL (11.5-16.0)
[2022-08-18 05:37] LABS: Albumin, Blood 1.9 g/dL (3.4-5.0); Albumin/Globulin Ratio 0.5 (0.8-1.8); Bilirubin, Total 0.5 mg/dL (0.1-1.0); Bun/Creatinine Ratio 21.2 (12.0-20.0); Calcium, Blood 6.7 mg/dL (8.5-10.1); Creatinine, Blood 2.69 mg/dL (0.40-1.00); Globulin, Blood 3.8 g/dL (2.2-4.0); Magnesium, Blood 2.1 mg/dL (1.6-2.4); Phosphorus, Blood 5.6 mg/dL (2.5-4.9); Potassium, Blood 4.4 mmol/L (3.5-5.5); Total Protein, Blood 5.7 g/dL (6.4-8.2)
--- NOTE | 2022-08-18 08:02 | NUR ---
INTERNAL COMBUSTION ENGINE INSPECTOR SUMMARY. PINO IS A&OX4, HAS NOT BORN WEIGHT ON HER LOWER EXTREMITIES EXCEPT IN PHYSICAL THERAPY AT [facility] SINCE FRACTURING HER PELVIS A FEW WEEKS AGO. EXTENSIVE RESOLVING BRUISE INNER RIGHT THIGH, ( FX WAS ON THE LEFT) PHOTOGRAPHS OF WOUND IN SACRAL AREA BETWEEN GLUTEAL FOLDS. OPEN AREA LOOKS MORE LIKE A SPLIT THAN A PRESSURE WOUND. TAYLOR CREAMY EXUDATE IN CENTER. AREA CLEANSED WITH NS THEN MEPILEX DRESSING APPLIED. RT VISITS MULTIPLE TIMES OVERNIGHT FOR SOB FROM LONGSTANDING COPD. GUAFENISEN/DEXTROMETHORPHAN ORDERED AND GIVEN TO ASSIST PATIENT WITH EXPECTORATING MUCOUS. RIGHT CHEST PERM CATH SITE IS CLEAN DRY AND INTACT.
[2022-08-18 17:14] LABS: Adenovirus F 40/41 Not Detected (NOT DETECT); Astrovirus Not Detected (NOT DETECT); Campylobacter Sp Not Detected (NOT DETECT); Cryptosporidium Not Detected (NOT DETECT); Cyclospora Cayetanensis Not Detected (NOT DETECT); E. Coli O157 Not Detected (NOT DETECT); Entamoeba Histolytica Not Detected (NOT DETECT); Enteroaggregative E. coli-EAEC Not Detected (NOT DETECT); Enteropathogenic E. coli-EPEC Not Detected (NOT DETECT); Enterotoxigenic E. coli-ETEC Not Detected (NOT DETECT); Giardia Lamblia Not Detected (NOT DETECT); Norovirus GI/GII Not Detected (NOT DETECT); Plesiomonas Shigelloides Not Detected (NOT DETECT); Rotavirus A Not Detected (NOT DETECT); Salmonella Sp Not Detected (NOT DETECT); Sapovirus Not Detected (NOT DETECT); Shiga Toxin-prod E. coli-STEC Not Detected (NOT DETECT); Shigella/Enteroin E. coli-EIEC Not Detected (NOT DETECT); Vibrio Cholerae Not Detected (NOT DETECT); Vibrio Sp Not Detected (NOT DETECT); Yersinia Enterocolitica Not Detected (NOT DETECT)
--- NOTE | 2022-08-18 18:43 | NUR ---
SHIFT SUMMARY PT IS HAVING SOME STIFF NESS AND SORENESS IN RIGHT ARM NEAR PORT. AREA C/D/I. PT WAS ABLE TO GET UP TO THE BEDSIDE COMMODE, BUT WAS WINDED AND NEEDED A BREATHING TX AFTERWARDS. LEGS ARE SWOLLEN AND LUNGS COARSE CRACKLES IN BASES SO DR ORDERED PRN LASIX. BLADDER SCAN SHOWED 16 ML. PT IS +3 EDEMA IN PURVI FEET. BP STILL SOFT. BED IN LOWEST POSITIONA AND CALL LIGHT IN REACH
[2022-08-18] MEDS ORDERED: PROLIA60 MG/1 ML SC (20:43)
[2022-08-18] MEDS ORDERED: ADVAIR HFA 230-28 GM INH (20:46)
[2022-08-18] MEDS ORDERED: LISI5 PO (20:47)
--- NOTE | 2022-08-19 02:07 | NUR ---
MANUAL BLOOD PRESSURE CHECKED IN LEFT ARM AFTER MONITOR RECORDED A PRESSURE PRIOR TO MIDODRINE DOSE OF 74/21 WITH HR 74. WHEN RECHECKED MANUALLY BY THIS RN, PRESSURE WAS 80/48. PATIENT WAS FAST ASLEEP, BUT AROUSED TO TOUCH. 02 WAS REPLACED IT WAS OFF PATIENT LYING NEXT TO HER IN THE BED. AFTER 1-2 MINUTES, PATIENT WOKE MORE FULLY AND TOOK HER MEDICATION EASILY. WILL RECHECK BP WITHIN THE HOUR
[2022-08-19 04:58] LABS: Hematocrit 25.7 % (33.0-51.0)
[2022-08-19 05:19] LABS: Albumin, Blood 1.9 g/dL (3.4-5.0); Anion Gap 7 mmol/L (6-16); Blood Urea Nitrogen 62 mg/dL (8-24); Bun/Creatinine Ratio 18.5 (12.0-20.0); CO2, Blood 35 mmol/L (21-32); Calcium, Blood 6.1 mg/dL (8.5-10.1); Chloride, Blood 92 mmol/L (98-108); Creatinine, Blood 3.35 mg/dL (0.40-1.00); Glomerular Filtration Rate 14 (60-); Glucose, Blood 78 mg/dL (70-99); Magnesium, Blood 2.2 mg/dL (1.6-2.4); Phosphorus, Blood 6.3 mg/dL (2.5-4.9); Potassium, Blood 4.4 mmol/L (3.5-5.5); Sodium, Blood 134 mmol/L (136-145)
--- NOTE | 2022-08-19 06:20 | NUR ---
PATIENT SLEPT VERY WELL OVERNIGHT AFTER RECEIVING 0.5MG PO ATIVAN AT HS FOR INCREASING ANXIETY AND RESTLESSNESS. MIDODRINE WAS GIVEN FOR CHRONIC HYPOTENSION AT 24 AND 0600. BLOOD PRESSURE AT 2499 CHECKED MANUALLY WAS 80/48 BUT RECOVERED ONE HOUR LATER TO A SYSTOLIC IN THE 90'S. SHE WAS MORE TREMULOUS AND HAD SOME INTERMITTANT SPASTIC JERKING OF ARMS AND SHOULDERS LAST NIGHT, WELL EXTREME ITCHING OF LEGS AND FEET. ORDER FOR 12.5MG IV BENEDRYL RECEIVED AND GIVEN AT 0600 THIS MORNING.
[2022-08-19 08:09] LABS: HBSAG SCREEN Negative (Negative); HCV AB <0.1 (0.0-0.9); HEP A AB, IGM Negative (Negative); HEP B CORE AB, IGM Negative (Negative)
--- NOTE | 2022-08-19 18:03 | NUR ---
PT TOLELRATED DIALYSIS TODAY. STATES IS NOT HAPPY WITH IT TODAY THOUGH. SEEMED WORSE. VSS. IMPROVED WITH ALBUMIN AFTER DIALYSIS. DID HAVE NEED FOR RT THIS TAL. DID STATE DID BETTER. NO NEW CONCERNS NTOED. BED IN LOW POSITIOIN, CALL LITE IN REACH, CALLS APPOORP
--- NOTE | 2022-08-20 00:35 | NUR ---
AT HS WS VOICING NEED FOR "WHAT THEY GAVE ME LAST NIGHT" FOR RESTLESS LEGS, ETC. NOTED MED WAS ATIVAN 0.5 MG PO. CALL WAS PLACED TO MD AND ME WAS ORDERED X 1. BUT PT BP WAS LOW (92/60) AND WAS SLEEPING WELL WITHOUT MED. NO NOTED LEG RESTLESSNESS. MED HELD AND RETURNED TO PIXIS. CALL LIGHT IN REACH. RESTING QUIETLY AT THIS TIME
[2022-08-20 04:51] LABS: BASOPHILS ABSOLUTE AUTO 0.02 K/mm3 (0.00-0.23); BASOPHILS PERCENT AUTO 0 % (0-2); EOSINOPHILS ABSOLUTE AUTO 0.63 K/mm3 (0.00-0.68); EOSINOPHILS PERCENT AUTO 10 % (0-6); Hematocrit 24.2 % (33.0-51.0); Hemoglobin 7.2 g/dL (11.5-16.0); IMMATURE GRAN ABSOLUTE AUTO 0.04 K/mm3 (0.00-0.10); IMMATURE GRAN PERCENT AUTO 1 % (0-1); LYMPHOCYTES ABSOLUTE AUTO 0.61 K/mm3 (0.84-5.20); LYMPHOCYTES PERCENT AUTO 10 % (21-46); MONOCYTES ABSOLUTE AUTO 0.58 K/mm3 (0.16-1.47); MONOCYTES PERCENT AUTO 9 % (4-13); Mean Corpuscular HGB 30.6 pg (26.0-34.0); Mean Corpuscular HGB Conc 29.8 g/dL (31.5-36.5); Mean Corpuscular Volume 103 fL (80-100); Mean Platelet Volume 9.6 fL (9.1-12.4); NEUTROPHILS ABSOLUTE AUTO 4.51 K/mm3 (1.96-9.15); NEUTROPHILS PERCENT AUTO 71 % (41-73); NRBC ABSOLUTE 0.02 K/mm3 (0.00-0.02); NRBC Auto 0.3 /100 WBC (0.0-0.2); Platelet Count 351 K/mm3 (150-400); RDW Coefficient Variation 16.2 % (11.7-14.2); RDW Standard Deviation 60.1 fL (35.1-46.3); Red Blood Cell Count 2.35 M/mm3 (3.80-5.20); White Blood Cell Count 6.39 K/mm3 (4.00-11.30)
[2022-08-20 05:20] LABS: Magnesium, Blood 2.1 mg/dL (1.6-2.4)
[2022-08-20 05:37] LABS: Albumin, Blood 2.2 g/dL (3.4-5.0); Anion Gap 3 mmol/L (6-16); Blood Urea Nitrogen 26 mg/dL (8-24); Bun/Creatinine Ratio 11.1 (12.0-20.0); CO2, Blood 37 mmol/L (21-32); Calcium, Blood 8.2 mg/dL (8.5-10.1); Chloride, Blood 101 mmol/L (98-108); Creatinine, Blood 2.34 mg/dL (0.40-1.00); Glomerular Filtration Rate 21 (60-); Glucose, Blood 76 mg/dL (70-99); Phosphorus, Blood 4.6 mg/dL (2.5-4.9); Sodium, Blood 141 mmol/L (136-145)
--- NOTE | 2022-08-20 05:46 | NUR ---
BAT PERSON SUMMARY BP LOW NORMAL, RECEIVED MIDODRINE SCHEDULED EVERY 6 HRS TO KEEP BP UP. HAS BEEN RESTING QUIETLY WITH FEW INTERRUPTIONS THROUGHOUT SHIFT. CALL LIGHT IN REACH. RAILS UP X 3. O2 PER NC. NO NOTED S/S ACUTE DISTRESS OF THIS WRITING.
--- NOTE | 2022-08-20 09:17 | NUR ---
PATIENT IS REFUSING ORAL LIQUID IRON, DUE TO THE TASTE AND IRON IS LOW. MULTIPLE DOSES IN DRAWER.
--- NOTE | 2022-08-20 18:28 | NUR ---
IT APPEARS THAT THE PATIENT IS FEELING A BIT WEEK. APPETITE IS SMALL. SHE ASKED FOR A SANDWICH RATHER THAN EATING HER DINNER TRAY. OXYGEN HAD BEEN INCREASED TO 4 LNC, BUT WE TRIED TO TURN IT BACK DOWN TO 2. SHE BECAME SOB AND REQUESTED A BREATHING TREATMENT FROM RT. SHE WOULD LIKE TO HAVE A BED SIDE PRN INHALER. OXYGEN WAS INCREASED BACK TO 4. SHE WAS COMFORTABLE AFTERWARD. HOWEVER HER MIDRODINE WAS HELD BECAUSE AFTER THE RT TREATMENT BP WAS 132 SYSTOLIC.
--- NOTE | 2022-08-20 19:39 | NUR ---
RESTING QUIETLY. CALL LIGHT IN REACH
--- NOTE | 2022-08-21 03:58 | NUR ---
[employer]ANT SUMMARY BP ELEVATED A SHIFT COMMENCE (150/114) AND SLOWLY TRENDED DOWN TO 130/85 BY MIDNIGHT. MIDODRINE HELD. HAS BEEN RESTING QUIETLY WITH FEW INTERRUPTIONS - FOR TURNING, ETC., WITHOUT C/O VOICED. CALL LIGHT IN REACH. NO NOTED S/S ACUTE DISTRESS OF THIS WRITING. WILL CONTINUE TO MONITOR
[2022-08-21 05:16] LABS: Hematocrit 25.8 % (33.0-51.0); Hemoglobin 7.6 g/dL (11.5-16.0)
[2022-08-21 05:47] LABS: Albumin, Blood 2.5 g/dL (3.4-5.0); Anion Gap 4 mmol/L (6-16); Blood Urea Nitrogen 31 mg/dL (8-24); Bun/Creatinine Ratio 10.3 (12.0-20.0); CO2, Blood 35 mmol/L (21-32); Calcium, Blood 8.5 mg/dL (8.5-10.1); Chloride, Blood 100 mmol/L (98-108); Creatinine, Blood 3.02 mg/dL (0.40-1.00); Glomerular Filtration Rate 16 (60-); Glucose, Blood 85 mg/dL (70-99); Phosphorus, Blood 4.5 mg/dL (2.5-4.9); Sodium, Blood 139 mmol/L (136-145)
--- NOTE | 2022-08-21 10:23 | NUR ---
DIALYSIS NOTE PT DID NOT TOLERATE TX WELL, BP DROPPED INTO 60'S/30'S. TOTAL OF 400NS BOLUS GIVEN, AND ALBUMIN ADMINISTERED. MD NOTIFIED AND ORDERS RECEIVED TO TERMINATE TX. PT DID REPORT IMPROVEMENT IN SYMPTOMS AND NOTED IMPROVENMENT IN BP AFTER TX TERMINATED AND BLOOD RETURNED.
--- NOTE | 2022-08-21 13:31 | NUR ---
CONTACTED DR FLORES REGARDING PT BP 79/67. PT STATES SHE FEELS A LITTLE WEAK. ORDERS TO CONTINUE TO MONITOR AND HOLD ANY BP MEDS/LASIX AND ADMINISTER NEXT PRN DOSE OF CLONINDINE WHEN ABLE TO.
--- NOTE | 2022-08-21 17:15 | NUR ---
SHIFT SUMMARY NO ACUTE CHANGES DURING SHIFT. PT ALERT AND ORIENTED. PT DOWN TO HD TODAY FOR 1 HOUR, UNABLE TO TOLERATE FULL CHAIR TIME. PT REMAINS ON 4L NC. DRESSING TO R ARM SKIN TEAR CHANGED. WILL CONTINUE TO MONITOR
--- NOTE | 2022-08-21 17:57 | NUR ---
Met with pt today; she was tearful about her first dialysis week. She states she wasn't able to tolerate a full session today and had trouble with low blood pressure and "feeling bad in general" during dialysis. She talks about all the recent changes in her life, starting with a fall at home that landed her in rehab. She states she is afraid she won't be able to tolerate dialysis for the "long haul" and she'll "just ". She states she still has too much she wants to do in life. She ponders living in assisted living, and talks about selling her home, and how overwhelming all the things seem at once. We talked about delegating some tasks to her children, and she did like that idea. I tell her I'll bring her more information about dialysis, especially youtube videos she can watch on her phone. She is very interested in this. Plan to visit again tomorrow, bringing educational material. She is very hapy about this.
--- NOTE | 2022-08-22 04:22 | NUR ---
SHIFT SUMMARY PATIENT IS ALERT AND ORIENTED. PATIENT HAS HAD NO ACUTE EVENTS THIS SHIFT. VITAL SIGNS REVIEWED. PATIENT HAS BEEN RESTING THIS SHIFT. PATIENT HAS HAD NO COMPLAINTS OF PAIN, NAUSEA, SOB OR VOMITTING THIS SHIFT. PATIENT HAS BEEN ON 4L NASAL CANNULA ALL SHIFT SATTING ABOVE 95. BED IN LOCKED AND LOWEST POSITION. CALL LIGHT IN PLACE. WILL MONITOR UNTIL SHIFT CHANGE.
[2022-08-22 05:55] LABS: BASOPHILS ABSOLUTE AUTO 0.01 K/mm3 (0.00-0.23); BASOPHILS PERCENT AUTO 0 % (0-2); EOSINOPHILS ABSOLUTE AUTO 0.91 K/mm3 (0.00-0.68); EOSINOPHILS PERCENT AUTO 11 % (0-6); Hematocrit 26.3 % (33.0-51.0); Hemoglobin 7.6 g/dL (11.5-16.0); IMMATURE GRAN PERCENT AUTO 1 % (0-1); LYMPHOCYTES ABSOLUTE AUTO 0.68 K/mm3 (0.84-5.20); LYMPHOCYTES PERCENT AUTO 8 % (21-46); MONOCYTES ABSOLUTE AUTO 0.46 K/mm3 (0.16-1.47); MONOCYTES PERCENT AUTO 5 % (4-13); Mean Corpuscular HGB 30.5 pg (26.0-34.0); Mean Corpuscular HGB Conc 28.9 g/dL (31.5-36.5); Mean Corpuscular Volume 106 fL (80-100); Mean Platelet Volume 9.4 fL (9.1-12.4); NEUTROPHILS PERCENT AUTO 75 % (41-73); Platelet Count 293 K/mm3 (150-400); RDW Standard Deviation 63.4 fL (35.1-46.3); Red Blood Cell Count 2.49 M/mm3 (3.80-5.20); White Blood Cell Count 8.56 K/mm3 (4.00-11.30)
[2022-08-22 06:18] LABS: Albumin, Blood 2.4 g/dL (3.4-5.0); Anion Gap 4 mmol/L (6-16); Blood Urea Nitrogen 24 mg/dL (8-24); Bun/Creatinine Ratio 7.9 (12.0-20.0); CO2, Blood 36 mmol/L (21-32); Calcium, Blood 8.4 mg/dL (8.5-10.1); Chloride, Blood 100 mmol/L (98-108); Creatinine, Blood 3.02 mg/dL (0.40-1.00); Glomerular Filtration Rate 16 (60-); Glucose, Blood 80 mg/dL (70-99); Magnesium, Blood 2.1 mg/dL (1.6-2.4); Phosphorus, Blood 3.3 mg/dL (2.5-4.9); Potassium, Blood 3.8 mmol/L (3.5-5.5); Sodium, Blood 140 mmol/L (136-145)
--- NOTE | 2022-08-22 17:34 | NUR ---
SHIFT SUMMARY NO ACUTE CHANGES DURING SHIFT. PT ALERT AND ORIENTED. PT BECAME VERY SOB AND ANXIOUS FOLLOWING AMBULATION TODAY. PT ASSISTED BACK TO BED AND BREATHING TREATMENT ADMINISTERED, SYMPTOMS SUBSIDED FOLLOWING TREATMENT. NO HD FOR PT TODAY, PLANS TO CONTINUE TOMORROW. PT DOWN TO CT CHEST, PENDING RESULTS. CALL LIGHT WITHIN REACH.
--- NOTE | 2022-08-23 03:47 | NUR ---
SHIFT SUMMARY PATIENT IS ALERT AND ORIENTED. PATIENT HAS HAD NO ACUTE EVENTS THIS SHIFT. VITAL SIGNS REVIEWED. PATIENT HAS NOT COMPLAINED OF PAIN, NAUSEA, SOB OR VOMITTING THIS SHIFT. PATIENT IS STILL ON 4L NASAL CANNULA. BED IN LOCKED AND LOWEST POSITION. CALL LIGHT IN PLACE. PATIENT RESTING COMFORTABLY MOST OF SHIFT. WILL MONITOR UNTIL SHIFT CHANGE.
[2022-08-23 04:46] LABS: Hematocrit 30.1 % (33.0-51.0); Hemoglobin 8.9 g/dL (11.5-16.0)
[2022-08-23 05:06] LABS: Albumin, Blood 2.5 g/dL (3.4-5.0); Anion Gap 5 mmol/L (6-16); Blood Urea Nitrogen 28 mg/dL (8-24); Bun/Creatinine Ratio 7.6 (12.0-20.0); CO2, Blood 34 mmol/L (21-32); Chloride, Blood 100 mmol/L (98-108); Creatinine, Blood 3.67 mg/dL (0.40-1.00); Glomerular Filtration Rate 12 (60-); Glucose, Blood 78 mg/dL (70-99); Phosphorus, Blood 3.7 mg/dL (2.5-4.9); Sodium, Blood 139 mmol/L (136-145)
--- NOTE | 2022-08-23 18:11 | NUR ---
SHIFT SUMMARY NO ACUTE CHANGES DURING SHIFT. PT ALERT AND ORIENTED, CALLS APPROPRIATELY. PT TO HD TODAY FOR 2-3 HRS. SOB THROUGHOUT DAY, PRN NEB TREATMENTS ADMINISTERED BY RT. PT REMAINS ON 4L NC. IV ABX CHANGED D/T CT RESULTS. PLANS FOR THORACENTESIS TOMORROW. CONTINUE TO MONITOR. CALL LIGHT WITHIN REACH.
--- NOTE | 2022-08-24 04:30 | NUR ---
SHIFT SUMMARY PATIENT IS ALERT AND ORIENTED. PATIENT HAS NOT HAD ANY ACUTE EVENTS THIS SHIFT. VITAL SIGNS REVIEWED. PATIENT HAS BEEN HYPOTENSIVE THIS SHIFT. GIVEN MIDODRINE PRN. PATIENT HAS NOT COMPLAINED OF PAIN, NAUSEA, SOB OR VOMITTING THIS SHIFT. BED IN LOCKED AND LOWEST POSITION. CALL LIGHT IN PLACE. WILL MONITOR UNTIL SHIFT CHANGE.
[2022-08-24 05:54] LABS: Hematocrit 27.6 % (33.0-51.0)
[2022-08-24 06:08] LABS: International Normalized Ratio 1.07; Prothrombin Time Results 11.2 Sec (9.7-11.5)
[2022-08-24 06:22] LABS: Albumin, Blood 2.8 g/dL (3.4-5.0); Anion Gap 5 mmol/L (6-16); Blood Urea Nitrogen 18 mg/dL (8-24); Bun/Creatinine Ratio 6.2 (12.0-20.0); CO2, Blood 36 mmol/L (21-32); Calcium, Blood 8.6 mg/dL (8.5-10.1); Chloride, Blood 100 mmol/L (98-108); Creatinine, Blood 2.88 mg/dL (0.40-1.00); Glomerular Filtration Rate 17 (60-); Glucose, Blood 67 mg/dL (70-99); Phosphorus, Blood 2.4 mg/dL (2.5-4.9); Potassium, Blood 3.8 mmol/L (3.5-5.5); Sodium, Blood 141 mmol/L (136-145)
[2022-08-24 10:28] LABS: SARS-Cov-2 (COVID-19) PCR, MMC NEGATIVE (NEGATIVE)
[2022-08-24 10:36] LABS: BASOPHILS ABSOLUTE AUTO 0.04 K/mm3 (0.00-0.23); BASOPHILS PERCENT AUTO 0 % (0-2); EOSINOPHILS ABSOLUTE AUTO 1.89 K/mm3 (0.00-0.68); EOSINOPHILS PERCENT AUTO 11 % (0-6); Hematocrit 29.3 % (33.0-51.0); Hemoglobin 8.6 g/dL (11.5-16.0); IMMATURE GRAN ABSOLUTE AUTO 0.24 K/mm3 (0.00-0.10); IMMATURE GRAN PERCENT AUTO 1 % (0-1); LYMPHOCYTES ABSOLUTE AUTO 0.89 K/mm3 (0.84-5.20); LYMPHOCYTES PERCENT AUTO 5 % (21-46); MONOCYTES ABSOLUTE AUTO 0.59 K/mm3 (0.16-1.47); MONOCYTES PERCENT AUTO 3 % (4-13); Mean Corpuscular HGB 31.6 pg (26.0-34.0); Mean Corpuscular HGB Conc 29.4 g/dL (31.5-36.5); Mean Corpuscular Volume 108 fL (80-100); Mean Platelet Volume 9.3 fL (9.1-12.4); NEUTROPHILS ABSOLUTE AUTO 14.16 K/mm3 (1.96-9.15); NEUTROPHILS PERCENT AUTO 80 % (41-73); NRBC ABSOLUTE 0.02 K/mm3 (0.00-0.02); NRBC Auto 0.1 /100 WBC (0.0-0.2); Platelet Count 275 K/mm3 (150-400); RDW Coefficient Variation 17.6 % (11.7-14.2); RDW Standard Deviation 69.4 fL (35.1-46.3); Red Blood Cell Count 2.72 M/mm3 (3.80-5.20); White Blood Cell Count 17.81 K/mm3 (4.00-11.30)
[2022-08-24 10:59] LABS: Total Protein, Blood 5.6 g/dL (6.4-8.2)
[2022-08-24 12:56] LABS: Protein, Body Fluid 1.9 g/dL
[2022-08-24 12:58] LABS: Lactate Dehydrogenase, Body Fl 79 U/L
[2022-08-24 13:21] LABS: Automated BF WBC Count 0.122 K/mm3 (0-999)
[2022-08-24 13:34] LABS: Glucose, Body Fluid 104 mg/dL
[2022-08-24 14:09] LABS: Body Fluid WBC Count 122 /mm3 (0-999)
[2022-08-24 14:31] LABS: RBC Count, Body Fluid 48 /mm3 (0-0)
--- NOTE | 2022-08-24 15:56 | NUR ---
Met with pt today at bedside; Charge Nurse had just finished placing a PICC line, and pt states relief to have it placed, states she's growing tired of "so many pokes". As promised, I provided additional patient centered material explaining dialysis. Pt states her appreciation for the materials, and mentions that her dialysis treatments are not improving. Per chart notes and discussion with salesperson used cars, pt's blood pressures are still soft during the treatment, and pt has insisted they stop before the dialysis was complete. She expresses wanting very much to continue, but is feeling discouraged with how she feels physically during and after dialysis, and her inability to tolerate a full session. Provided words of encouragement, and reminded her of the new interventions of scheduled midodrine and albumin being tried. Comfirmed pt's understanding of the risks and consequences of stopping dialysis. She frequently states quitting is not an option at this time, as she still enjoys quilting by hand when she is able. However, I suspect it may be more closely related to fear of suffocation or dying, which is extremely common in patients with COPD. Plan to continue therapeutic visits as pt states she thoroughly enjoys them.
[2022-08-24 17:21] LABS: Appearance, Body Fluid Clear (Clear); Color, Body Fluid Yellow (None-Yellow); Total Cell Count, Body Fluid 100
--- NOTE | 2022-08-24 19:26 | NUR ---
SHIFT SUMMARY: PT A/O X 4, STANDBY ASSIST, PLEASANT AND COOPERATIVE. PT IV INFILTRATED THIS AM AND POWER GLIDE PLACED. PT HAD THORACENTESIS WITH 700 MLS DRAINED. PT REPORTED SHE FELT MUCH BETTER POST PROCEDURE. SHE WAS ABLE TO AMBULATE TO RESTROOM TO URINATE WITH STANDBY HELP. PT REPORTED SHE FELT MUCH BETTER ABD WAS ABLE TO BREATH MUCH BETTER. TIRATED O2 DOWN TO 3 LPM FROM 4.
--- NOTE | 2022-08-24 23:30 | NUR ---
CALL TO HOSPITALIST DR. LIGHT REGARDING SYSYOLIC BLOOD PRESSURES IN THE 80S, MAP IN THE LOW 60S, WHICH HAS PERSISTED SINCE DIALYSIS ON 08/23. PT IS PRESCRIBED MIDODRINE 10 MG QID AND IS ASYMPTOMATIC. PER NADEGE WADE, CONTINUE TO MONITOR PATIENT. NO INTERVENTION AT THIS TIME CONSIDERING PT IS ASYMPTOMATIC.
[2022-08-25 05:08] LABS: Hematocrit 23.6 % (33.0-51.0); Hemoglobin 7.1 g/dL (11.5-16.0)
[2022-08-25 05:41] LABS: Albumin, Blood 2.5 g/dL (3.4-5.0); Anion Gap 6 mmol/L (6-16); Blood Urea Nitrogen 25 mg/dL (8-24); Bun/Creatinine Ratio 6.6 (12.0-20.0); CO2, Blood 34 mmol/L (21-32); Calcium, Blood 8.1 mg/dL (8.5-10.1); Chloride, Blood 99 mmol/L (98-108); Creatinine, Blood 3.81 mg/dL (0.40-1.00); Glomerular Filtration Rate 12 (60-); Glucose, Blood 74 mg/dL (70-99); Magnesium, Blood 1.7 mg/dL (1.6-2.4); Potassium, Blood 3.6 mmol/L (3.5-5.5); Sodium, Blood 139 mmol/L (136-145)
--- NOTE | 2022-08-25 07:50 | NUR ---
PHONE CALL PLACED TO DR. ROSS - PT BP IS 61/50. SHE IS ASYMPTOMATIC. DR. ROSS WITH ORDERS FOR NORMAL SALINE 500 ML BOLUS AND ALBUMIN 25 MG IV.
--- NOTE | 2022-08-25 10:15 | NUR ---
VERBAL UPDATE TO DR. ROSS WHILE HE IS ROUNDING - BP RECHEK IS 61/50. DR. ROSS AT PT BEDSIDE TO DISCUSS TREATMENT PLAN AND OPTIONS.
--- NOTE | 2022-08-25 11:45 | NUR ---
PT IS PRESENTLY IN DIALYSIS. SHE WAS ESCORTED TO DIALYSIS VIA WHEELCHAIR AND ONE AGRICULTURAL ENGINEERING TECHNICIAN. PT HAD A PHONE CALL DISCUSSION WITH DR. KHAN AT BEDSIDE. HER FRIEND, BRANDON, WAS ALSO PRESENT FOR SUPPORT.
--- NOTE | 2022-08-25 15:15 | NUR ---
PT BACK FROM DIALYSIS. SHE IS MORE FATIGUED THAN THIS MORNING - SBA WITH GB AND FWW TO BATHROOM FOR BOWEL MOVEMENT.
--- NOTE | 2022-08-25 15:23 | NUR ---
Called to meet with patient after visit with physician. She was sad and distrught by information given by physician Review of prognosis and dialysis. Had Dr lakhani contact her and updated dialysis nurse. Will continue supportive visits. her kps score is 30%
--- NOTE | 2022-08-25 18:23 | NUR ---
PT RECEIVED HEMODIALYSIS. PT CONSULTED WITH DR. ROSS AND WITH DR. KHAN REGARDING LOW BLOOD PRESSURES. PRIOR TO DIALYSIS, PT RECEIVED EXTRA ONE TIME DOSE OF MIDODRINE, AND RECEIVED ALBUMIN DURING DIALYSIS. ABLE TO SUCCESSFULLY COMPLETE HD TREATMENT. PT FATIGUED UPON RETURN TO ROOM, REPORTING INCREASED SOB WHILE AMBULATING TO BATHROOM. RESTING NOW. RN WILL CONTINUE TO MONITOR.
--- NOTE | 2022-08-25 19:47 | NUR ---
10 MG MIDRODRINE GIVEN FOR LOW BP READING. WILL REASSESS.
--- NOTE | 2022-08-26 00:09 | NUR ---
ABX HUNG. PT RESTING QUIETLY. CALL LT IN REACH.
--- NOTE | 2022-08-26 02:04 | NUR ---
PT RESTING QUIETLY. RESP EVEN. WILL CONTINUE TO PROVIDE CARE T/O SHIFT. CALL LT IN REACH.
--- NOTE | 2022-08-26 04:06 | NUR ---
LOW BP. WILL NOTIFY PT ASYMPTOMATIC. NO CHANGE IN MENTATION. NO SOB, OR CP. CALL LT IN REACH.
--- NOTE | 2022-08-26 04:20 | NUR ---
NOTIFIED OF PT'S LOW BP. RECEIVED A ONE TIME ORDER FOR 10MG MIDODRINE PO.
[2022-08-26 04:35] LABS: Hematocrit 24.3 % (33.0-51.0); Hemoglobin 6.8 g/dL (11.5-16.0)
[2022-08-26 04:52] LABS: Albumin, Blood 3.4 g/dL (3.4-5.0); Anion Gap 5 mmol/L (6-16); Blood Urea Nitrogen 14 mg/dL (8-24); Bun/Creatinine Ratio 5.3 (12.0-20.0); CO2, Blood 34 mmol/L (21-32); Calcium, Blood 7.8 mg/dL (8.5-10.1); Chloride, Blood 104 mmol/L (98-108); Creatinine, Blood 2.66 mg/dL (0.40-1.00); Glomerular Filtration Rate 18 (60-); Glucose, Blood 74 mg/dL (70-99); Potassium, Blood 3.7 mmol/L (3.5-5.5); Sodium, Blood 143 mmol/L (136-145)
--- NOTE | 2022-08-26 04:54 | NUR ---
SHIFT SUMMARY: A/O. ABLE TO STATE NEEDS. RECEIVED BREATHING TREATMENTS FOR SOB DURING SHIFT. O2 SATS HAVE BEEN IN THE MID 90'S ON 3L VIA NC. LOW BP'S. SCHEDULED MIDODRINE GIVEN PLUS AN EXTRA 10MG DOSE GIVEN THIS MORNING. PT ASYMPTOMATIC. NO CP OR CHEST PRESSURE. SKIN IS VERY FRAGILE WITH SCATTERED BRUISING ALL OVER. WEEPING SKIN TEARS. GENERALIZED EDEMA NOTED T/O. PITTING EDEMA TO BLE AND BOTH FEET. PT FLOATED ON PILLOWS TO RELIEVE PRESSURE ON COCCYX. BLE ELEVATED ON PILLOW. WILL CONTINUE TO PROVIDE CARE T/O SHIFT.
--- NOTE | 2022-08-26 17:28 | NUR ---
SHIFT SUMMARY NO ACUTE CHANGES DURING SHIFT. PT ALERT AND ORIENTED, PLEASANT. PT WITH SOB PERIODICALLY, PRN NEBS ADMINISTERED PER RT. PT STATES IMPROVEMENT IN SOB FOLLOWING TREATMENT. NO HD TODAY, PLANNING FOR TOMORROW. NO C/O PAIN. WILL CONTINUE TO MONITOR. CALL LIGHT WITHIN REACH.
[2022-08-27 05:33] LABS: BASOPHILS ABSOLUTE AUTO 0.05 K/mm3 (0.00-0.23); BASOPHILS PERCENT AUTO 0 % (0-2); EOSINOPHILS ABSOLUTE AUTO 1.99 K/mm3 (0.00-0.68); EOSINOPHILS PERCENT AUTO 18 % (0-6); Hematocrit 28.4 % (33.0-51.0); Hemoglobin 8.6 g/dL (11.5-16.0); IMMATURE GRAN PERCENT AUTO 4 % (0-1); LYMPHOCYTES ABSOLUTE AUTO 1.08 K/mm3 (0.84-5.20); LYMPHOCYTES PERCENT AUTO 10 % (21-46); MONOCYTES ABSOLUTE AUTO 0.56 K/mm3 (0.16-1.47); MONOCYTES PERCENT AUTO 5 % (4-13); Mean Corpuscular HGB 30.9 pg (26.0-34.0); Mean Corpuscular HGB Conc 30.3 g/dL (31.5-36.5); Mean Platelet Volume 9.4 fL (9.1-12.4); NEUTROPHILS PERCENT AUTO 64 % (41-73); NRBC ABSOLUTE 0.05 K/mm3 (0.00-0.02); NRBC Auto 0.4 /100 WBC (0.0-0.2); Platelet Count 223 K/mm3 (150-400); RDW Standard Deviation 77.7 fL (35.1-46.3); Red Blood Cell Count 2.78 M/mm3 (3.80-5.20); White Blood Cell Count 11.38 K/mm3 (4.00-11.30)
[2022-08-27 05:34] LABS: Mean Corpuscular Volume 102 fL (80-100)
[2022-08-27 06:15] LABS: Albumin, Blood 2.9 g/dL (3.4-5.0); Bilirubin, Total 0.7 mg/dL (0.1-1.0); Bun/Creatinine Ratio 5.7 (12.0-20.0); Calcium, Blood 7.8 mg/dL (8.5-10.1); Creatinine, Blood 3.5 mg/dL (0.40-1.00); Free Thyroxine 0.85 ng/dL (0.70-1.60); Globulin, Blood 2.8 g/dL (2.2-4.0); Magnesium, Blood 1.8 mg/dL (1.6-2.4); Potassium, Blood 3.4 mmol/L (3.5-5.5); Thyroid Stimulating Hormone 1.75 uIU/mL (0.360-4.800); Total Protein, Blood 5.7 g/dL (6.4-8.2); Triiodothyronine, Free 0.69 pg/mL (2.18-3.98)
--- NOTE | 2022-08-27 06:35 | NUR ---
PAIN MANAGEMENT PHYSICIAN SUMMARY: A&Ox4. PLEASANT AND COOPERATIVE WITH CARE. 1u PRBC hgb 6.8. RECHECK 8.6. IV MAG ADMINISTERED THIS AM. PRN MIDIDRONE 10mg ADMINISTERED x1 AROUND 0500 D/T CONTINUOUSLY CRITICAL HYPOTENSIVE STATE. CONTINUES TO HAVE DYSPNEA AND TACHYPNEA THOUGH SPO2 MAINTAINING >90% EXCEPT FOR DURING ACTIVITY. DAUGHTER WILL BE HERE TODAY AND PT PLANS TO DISCUSS PLAN OF CARE WITH HER. SCHEDULED FOR "HALF TREATMENT" OF DIALYSIS SHE IS UNABLE TO TOLERATE FULL Tx D/T HYPOTENSION. VERY EMOTIONAL THIS EVENING R/T TERMINAL CONDITION AND IS LOOKING FORWARD TO HAVING HER DAUGHTER HERE WITH HER.
--- NOTE | 2022-08-27 14:24 | NUR ---
Brief visit with patient and her daughter. Theraputic time they are reviewing a plan of care. Review with nursing states physician in to discuss plan of care.
--- NOTE | 2022-08-27 17:11 | NUR ---
SHIFT SUMMARY NO ACUTE CHANGES DURING SHIFT. PT ALERT AND ORIENTED, CALLS APPROPRIATELY. PT TO HD TODAY, TOLERATED. BP REMAINS LOW, SCHEDULED MIDODRINE ADMINISTERED. DRESSING TO COCCYX CHANGED. MD DISCUSSED PLAN OF CARE AND HOSPICE WITH PT AND FAMILY, PT HESITANT REGARDING HOSPICE. POSSIBLE PLACEMENT TO FACILITY. CALL LIGHT WITHIN REACH.
--- NOTE | 2022-08-27 23:55 | NUR ---
PT C/O ITCHING WELL WANTING SOMETHING FOR SLEEP. PER HOSPITALIST, OK FOR BENADRYL 25MG NOW.
--- NOTE | 2022-08-28 04:19 | NUR ---
FISH LIVER SORTER SUMMARY: A&Ox4. PLEASANT AND COOPERATIVE WITH CARE. CONTINUES TO BE HYPOTENSIVE, THOUGH SLIGHTLY BETTER THAN LAST NIGHT. DIPHENHYDRAMINE GIVEN FOR ITCHING AND RESTLESSNESS. SLEPT MAJORITY OF SHIFT. CALLS APPROPRIATELY FOR NEEDS. NO VOID THIS SHIFT & DENIES FEELING LIKE SHE NEEDS TO GO. NO C/O PAIN T/O EVENING. APPEARS TO BE WORKING LESS TO BREATHE AND REPORTS FEELING LESS DYSPNIC. WILL REPORT TO ONCOMING RN.
[2022-08-28 05:17] LABS: BASOPHILS ABSOLUTE AUTO 0.06 K/mm3 (0.00-0.23); BASOPHILS PERCENT AUTO 1 % (0-2); EOSINOPHILS ABSOLUTE AUTO 1.86 K/mm3 (0.00-0.68); EOSINOPHILS PERCENT AUTO 18 % (0-6); Hematocrit 26.3 % (33.0-51.0); Hemoglobin 7.7 g/dL (11.5-16.0); IMMATURE GRAN ABSOLUTE AUTO 0.41 K/mm3 (0.00-0.10); IMMATURE GRAN PERCENT AUTO 4 % (0-1); LYMPHOCYTES ABSOLUTE AUTO 1.12 K/mm3 (0.84-5.20); LYMPHOCYTES PERCENT AUTO 11 % (21-46); MONOCYTES ABSOLUTE AUTO 0.49 K/mm3 (0.16-1.47); MONOCYTES PERCENT AUTO 5 % (4-13); Mean Corpuscular HGB 30.1 pg (26.0-34.0); Mean Corpuscular HGB Conc 29.3 g/dL (31.5-36.5); Mean Corpuscular Volume 103 fL (80-100); Mean Platelet Volume 9.9 fL (9.1-12.4); NEUTROPHILS ABSOLUTE AUTO 6.51 K/mm3 (1.96-9.15); NEUTROPHILS PERCENT AUTO 62 % (41-73); NRBC ABSOLUTE 0.05 K/mm3 (0.00-0.02); NRBC Auto 0.5 /100 WBC (0.0-0.2); Platelet Count 215 K/mm3 (150-400); RDW Coefficient Variation 21.1 % (11.7-14.2); RDW Standard Deviation 79.2 fL (35.1-46.3); Red Blood Cell Count 2.56 M/mm3 (3.80-5.20); White Blood Cell Count 10.45 K/mm3 (4.00-11.30)
[2022-08-28 05:54] LABS: Albumin, Blood 3.3 g/dL (3.4-5.0); Anion Gap 7 mmol/L (6-16); Blood Urea Nitrogen 19 mg/dL (8-24); Bun/Creatinine Ratio 5.8 (12.0-20.0); CO2, Blood 31 mmol/L (21-32); Calcium, Blood 8.1 mg/dL (8.5-10.1); Chloride, Blood 105 mmol/L (98-108); Creatinine, Blood 3.28 mg/dL (0.40-1.00); Glomerular Filtration Rate 14 (60-); Glucose, Blood 76 mg/dL (70-99); Magnesium, Blood 2.2 mg/dL (1.6-2.4); Phosphorus, Blood 3.9 mg/dL (2.5-4.9); Potassium, Blood 3.5 mmol/L (3.5-5.5); Sodium, Blood 143 mmol/L (136-145)
--- NOTE | 2022-08-28 07:07 | NUR ---
PER DR KHAN, PT IS CHOOSING TO LIVE AND WE ARE OBLIGATED TO ENSURE SHE IS SET UP FOR DIALYSIS BIW.
--- NOTE | 2022-08-28 17:18 | NUR ---
SHIFT SUMMARY NO ACUTE CHANGES DURING SHIFT. PT ALERT AND ORIENTED, CALLS APPROPRIATELY. NO DIALYSIS TODAY, PLAN FOR TOMORROW. PLANS FOR PT TO D/C TOMORROW TO [facility]. HGB REMAINS > 7 TODAY. PT WHEEPING FROM L ARM, SWELLING TO BLE. CALL LIGHT WITHIN REACH.
[2022-08-28 18:33] LABS: SARS-Cov-2 (COVID-19) PCR, MMC NEGATIVE (NEGATIVE)
--- NOTE | 2022-08-29 03:02 | NUR ---
PATIENT REMAINS ON BEDREST THROUGHOUT THE NIGHT AND IS ORIIENTED X 4. SHE IS GOING TO [facility] IN THE AM AT 1030 AND WILL BE STOPPING AT [facility] FOR HER INTAKE PROCESS FIRST. HER BILATERAL LOWER EXTREMITIES ARE WRAPPED WITH ROBERT WRAP DURING DAY SHIFT AND PATIENT REQUESTS THE BANDAGES BE REMOVED AT NIGHT THEY ARE VERY PAINFULL AND SKIN UNDER BANDAGES IS BLANCHED. HER B/P IS SOFT AT 99 SYSTOLIC. SHE USES CALL LIGHT APPROPRIATELY AND IS ABLE TO MAKE HER NEEDS KNOWN. WILL CONTINUE TO MONITOR THIS PAITENT CLOSELY FOR ANY WANTS OR NEEDS THAT COME UP PRIOR TO REPORT AND HAND OFF TO DAY SHIFT RN.
[2022-08-29 05:39] LABS: Anion Gap 5 mmol/L (6-16); Blood Urea Nitrogen 28 mg/dL (8-24); Bun/Creatinine Ratio 6.8 (12.0-20.0); CO2, Blood 32 mmol/L (21-32); Calcium, Blood 7.4 mg/dL (8.5-10.1); Chloride, Blood 106 mmol/L (98-108); Glomerular Filtration Rate 11 (60-); Glucose, Blood 84 mg/dL (70-99); Magnesium, Blood 2.1 mg/dL (1.6-2.4); Phosphorus, Blood 4.5 mg/dL (2.5-4.9); Potassium, Blood 3.6 mmol/L (3.5-5.5); Sodium, Blood 143 mmol/L (136-145)
[2022-08-29 05:46] LABS: Hematocrit 29.1 % (33.0-51.0); Hemoglobin 8.5 g/dL (11.5-16.0)
--- NOTE | 2022-08-29 10:55 | NUR ---
PATIENT DISCHARGED TO [facility], WILL GO TO [facility] FOR INTAKE APPT FIRST. POWERGLIDE IV REMOVED WITHOUT INCIDENT. AM MEDS GIVEN. OFF UNIT AT 1055 VIA AMBULANCE. NO PERSONAL BELONGINGS LEFT BEHIND IN ROOM.
--- NOTE | 2022-08-29 11:30 | NUR ---
GAVE TELEPHONE REPORT TO SADI SIEGEL AT [facility].
[2022-08-29] MEDS ORDERED: Acetaminophen325 M1 PO (12:08)
[2022-08-29] MEDS ORDERED: CLOT10 MT (12:13)
[2022-08-29] MEDS ORDERED: GABA100 PO (12:15)
[2022-08-29] MEDS ORDERED: FLUDROCORTISON0.1 M1 PO (12:15)
[2022-08-29] MEDS ORDERED: FEROSUL220 MG/51 PO (12:15)
[2022-08-29] MEDS ORDERED: MIDO5 PO (12:16)
[2022-08-29] MEDS ORDERED: ONDA4ODT MM (12:18)
[2022-08-29] MEDS ORDERED: NASAL SPRAY88 ML (12:19)
[2022-09-01] MEDS ORDERED: Aspir 8181 MG PO (03:28)
== END 2022-08-29 11:15 | DRG 682 ==
LOC: ER 12:07 → MEDS 15:52
PROVIDERS: Emergency Medicine; Family Medicine; Internal Medicine; Internal Medicine Critical Care Medicine; Internal Medicine Nephrology; ADMIT Internal Medicine
PROC: 5A1D70Z Performance of Urinary Filtration, Intermittent, Less than 6 Hours Per Day (ICD-10-PCS; 2022-08-17)
PROC: 02HV33Z Insertion of Infusion Device into Superior Vena Cava, Percutaneous Approach (ICD-10-PCS; 2022-08-17)
PROC: 0W993ZZ Drainage of Right Pleural Cavity, Percutaneous Approach (ICD-10-PCS; principal; 2022-08-24)
DX: N17.9 Acute kidney failure, unspecified (principal); G93.41 Metabolic encephalopathy; J18.9 Pneumonia, unspecified organism; J96.21 Acute and chronic respiratory failure with hypoxia; I13.2 Hypertensive heart and chronic kidney disease with heart failure and with stage 5 chronic kidney disease, or end stage renal disease; E87.1 Hypo-osmolality and hyponatremia; E46 Unspecified protein-calorie malnutrition; R64 Cachexia; Z68.1 Body mass index [BMI] 19.9 or less, adult; N18.6 End stage renal disease; N25.81 Secondary hyperparathyroidism of renal origin; I48.91 Unspecified atrial fibrillation; I50.9 Heart failure, unspecified; K74.60 Unspecified cirrhosis of liver; D63.1 Anemia in chronic kidney disease; E83.51 Hypocalcemia; Z66 Do not resuscitate; E87.5 Hyperkalemia; J43.9 Emphysema, unspecified; R19.7 Diarrhea, unspecified; E83.39 Other disorders of phosphorus metabolism; Z87.891 Personal history of nicotine dependence; Z88.6 Allergy status to analgesic agent; Z88.1 Allergy status to other antibiotic agents; Z88.5 Allergy status to narcotic agent; Z88.8 Allergy status to other drugs, medicaments and biological substances; Z79.82 Long term (current) use of aspirin; Z79.899 Other long term (current) drug therapy; Z90.49 Acquired absence of other specified parts of digestive tract; Z98.890 Other specified postprocedural states
CPT/HCPCS: 32555; 36415; 36430; 36558; 71045; 71260; 76937; 77001; 80053; 80069; 80074; 82533; 82945; 83615; 83735; 84100; 84155; 84157; 84439; 84443; 84481; 84484; 85014; 85018; 85025; 85610; 85730; 86317; 86850; 86900; 86901; 86923; 87070; 87205; 87507; 88108; 88305; 89051; 93005; 93010; 93308; 93321; 94640; 94664; 94760; 94762; 97110; 97116; 97161; 97530; 99152; 99285-25; A9270; C1750; C1769; C1894; J0456; J0610; J0696; J0881; J1200; J1644; J1940; J2250; J2543; J3010; J3475; J7040; J7050; P9016; P9047; Q9967; U0004